=== PATIENT | female | born 1960 | race Caucasian/White ===

== ENCOUNTER → 2016-09-05 | Outpatient (CLI) | payer BC ==
[~2016-09-05] MED LIST: CALC500C70 PO; LEVO112T2 PO; METH4PAK PO; METO25TA56 PO; PRLSR20 PO; TRIA37.5 PO; VNTHFA/IN INH
[2016-09-05 13:21] LABS: ALT/SGPT 33 U/L (12-78); AST/SGOT 25 U/L (15-37); BLOOD UREA NITROGEN 14 mg/dl (7-18); BUN/CREATININE RATIO 16.7 (10-20); CARBON DIOXIDE 29 mmol/L (21-32); CHLORIDE 101 mmol/L (98-107); CREATININE 0.81 mg/dl (0.60-1.20); GLUCOSE 89 mg/dl (70-99); POTASSIUM 3.4 mmol/L (3.5-5.1); SODIUM 141 mmol/L (136-145)
[2016-09-05 13:31] LABS: ALB/GLOB RATIO 1.1 (0.9-2); ALKALINE PHOSPHATASE 112 U/L (45-117); THYROID STIMULATING HORMONE 0.038 uIu/ml (0.300-4.500)
== END | disposition home or self-care (01) ==
LOC: C.LABBC 11:01
PROVIDERS: ATTEND Family Medicine
DX: I10 Essential (primary) hypertension (principal); E03.9 Hypothyroidism, unspecified

== ENCOUNTER → 2016-09-16 | Outpatient (CLI) | payer BC | END | disposition home or self-care (01) | LOC: C.PAPS 09:41 | PROVIDERS: ATTEND Obstetrics & Gynecology | DX: Z01.419 Encounter for gynecological examination (general) (routine) without abnormal findings (principal) ==

== ENCOUNTER → 2016-09-16 | Outpatient (CLI) | payer BC ==
--- NOTE | 2016-09-16 16:55 | MAMMOGRAPHY REPORT ---
BILATERAL DIGITAL SCREENING MAMMOGRAM TOMOSYNTHESIS WITH CAD: 09/16/2016 CLINICAL HISTORY: Routine screening. Patient has no complaints. TECHNIQUE: Bilateral breast tomosynthesis in addition to standard 2D mammography was performed. Curr ent study was also evaluated with a Computer Aided Detection (CAD) system. COMPARISON: No prior exams were available for comparison. BREAST COMPOSITION: There are scattered areas of fibroglandular density in both breasts. FINDINGS: There is a 4 mm nodular asymmetry within a slightly larger asymmetry in the middle one th ird of the left breast, best seen on the MLO view. Although this could represent normal overlapping fibroglandular tissue, additional spot compression tomosynthesis views and possibly ultrasound are recommended. There are a few round and punctate benign-appearing microcalcifications in the breasts. No other sonya picious mass, architectural distortion or cluster of microcalcifications is seen. IMPRESSION: ACR BI-RADS CATEGORY 0: INCOMPLETE EVALUATION: NEED ADDITIONAL IMAGING EVALUATION The asymmetry in the middle one third of the left breast needs additional evaluation. The patient will be called to schedule an appointment. Approximately 10% of breast cancers are not detected with mammography. A negative mammographic repor t should not delay biopsy if a clinically suggestive mass is present. Mary Kate Rosado M.D. ay/:09/16/2016 16:15:03 Field Broomer: Alexis MERLOS)(Isela), [facility] letter sent: Addl Imaging 0 BI-RADS Code: ACR BI-RADS Category 0: Incomplete Evaluation: Need Additional Imaging Evaluation
== END | disposition home or self-care (01) ==
LOC: C.MAMM 11:17
PROVIDERS: ATTEND Obstetrics & Gynecology
DX: Z12.31 Encounter for screening mammogram for malignant neoplasm of breast (principal); N64.9 Disorder of breast, unspecified

== ENCOUNTER → 2016-09-28 | Outpatient (CLI) | payer BC ==
--- NOTE | 2016-09-28 14:37 | MAMMOGRAPHY REPORT ---
THIS REPORT HAS BEEN AMENDED. UNILATERAL LEFT DIGITAL DIAGNOSTIC MAMMOGRAM TOMOSYNTHESIS AND TARGETED LEFT ULTRASOUND: 09/28/2016 CLINICAL HISTORY: 56-year-old woman called back from screening mammography for an asymmetry in the m iddle one third of the left breast, best seen on the MLO view. The patient provided outside mammogr am and ultrasound reports, but the images were not available. Based on those reports, the patient h ad been called back from screening and 2010 for a left breast asymmetry. Additional imaging includi ng diagnostic mammograms and targeted ultrasound were performed, including an ultrasound described i n the retroareolar breast. TECHNIQUE: Spot compression CC and MLO tomosynthesis images and reconstructed C-view were obtained. COMPARISON: Comparison is made to exam dated: 09/16/2016 mammogram - [facility]. BREAST COMPOSITION: There are scattered areas of fibroglandular density in the left breast. FINDINGS: There is persistence of a 5 mm nodular asymmetry in the middle one third of the left breas t, along the posterior nipple line, 3 cm from the nipple. No definite persistent architectural dist ortion. No corresponding abnormality is clearly seen on the spot compression CC tomosynthesis image s. Further evaluation with ultrasound was performed. Targeted ultrasound was performed in the 8:00 through 10:00, 12:00 retroareolar, and 2:00 to 4:00 ax es of the left breast. There is mild duct ectasia with possible internal debris in the retroareolar and 2:00 periareolar/subareolar left breast. No suspicious spiculated or irregular mass is identif ied. IMPRESSION: ACR-BI-RADS CATEGORY 3: PROBABLY BENIGN, TARGETED ULTRASOUND ACR-BI-RADS CATEGORY 3: [place] OBABLY BENIGN There is mild duct ectasia with possible intraductal debris in the subareolar left breast, which may be contributing to the nodularity seen mammographically on the MLO view. Additional attempts will be made to obtain the patient's prior imaging from 2010 and 2011. If the mammographic and sonograph ic appearance is stable then may be able to return to screen otherwise would recommend a short inter taya follow-up left mammogram and targeted ultrasound to ensure stability in 6 months. These results and recommendations were discussed with the patient at the time of the exam. Approximately 10% of breast cancers are not detected with mammography. A negative mammographic repor t should not delay biopsy if a clinically suggestive mass is present. Mary Kate Rosado M.D. ay/:09/28/2016 10:26:27 Slide Forming Machine Tender: Alexis MERLOS)(Isela), [facility] letter sent: Follow Up Recommended 3 BI-RADS Code: ACR-BI-RADS Category 3: Probably Benign Ultrasound BI-RADS: ACR-BI-RADS Category 3: P robably Benign AMENDMENT: 10/08/2016 Mary Kate Rosado M.D. The prior outside mammograms from [facility] dated 04/17/2010, 04/20/2011, 05/04/2012, 10/10/19 14, 10/19/2014 became available for review. The asymmetry in the middle one third of the left breas t, along the posterior nipple line on the MLO view which measures approximately 3 cm, with a more no dular 5 mm asymmetry within appears similar on all available prior mammograms from the outside insti tution, particularly the 2011 mammogram. They most likely represent the suspected duct ectasia seen on recent diagnostic ultrasound. Therefore, these findings are considered benign and would recomme nd follow-up at time of next annual screening mammogram. Amended BI-RADS: ACR BI-RADS Category 2: Benign letter sent: Normal 08/31
== END | disposition home or self-care (01) ==
LOC: C.MAMM 08:43
PROVIDERS: ATTEND Obstetrics & Gynecology
DX: N64.9 Disorder of breast, unspecified (principal)

== ENCOUNTER → 2016-11-03 | Outpatient (CLI) | payer BC ==
[2016-11-03 18:15] LABS: BLOOD UREA NITROGEN 20 mg/dl (7-18); BUN/CREATININE RATIO 24.8 (10-20); CALCIUM 9.1 mg/dl (8.5-10.1); CARBON DIOXIDE 32 mmol/L (21-32); CHLORIDE 101 mmol/L (98-107); CREATININE 0.81 mg/dl (0.60-1.20); GLUCOSE 85 mg/dl (70-99); SODIUM 141 mmol/L (136-145)
== END | disposition home or self-care (01) ==
LOC: C.LAB1850 17:15
PROVIDERS: ATTEND Family Medicine
DX: Z11.59 Encounter for screening for other viral diseases (principal); E03.9 Hypothyroidism, unspecified; E87.6 Hypokalemia

== ENCOUNTER 2017-03-28 08:37 | Emergency (ER) | payer BC ==
[~2017-03-28] VITALS: Ht 165.1 cm; Wt 67.2 kg
[2017-03-28 08:41] VITALS: TEMP 36.5; Ht 165.1 cm; Wt 67.2 kg
[2017-03-28] MEDS ORDERED: SODIUM CHLORIDE 0.9% 1000ML 1,000 ML IV STA ×2 (08:57→10:37)
[2017-03-28] MEDS ORDERED: ALBUT/IPRATROP 3MG/0.5MG NEB 3 ML VIAL INH STA (09:05)
--- NOTE | 2017-03-28 09:05 | EMERGENCY ROOM VISIT NOTE ---
History First contact with patient: 08:46 Chief Complaint: WEAKNESS Stated Complaint: WEAKNESS, FATIGUE, DIZZY X 1 WK Nursing Triage Summary: Feeling weak and dizzy. Seen at [facility] on Wednesday for same. Orientation questions correct in triage. Hx of Labyrinthitis History of Present Illness The patient is a 56 year old female who presents to the Emergency Room with complaints of generalized weakness and dizziness. The patient states that 10 days ago she developed some dizziness. She states she rolled over in bed and felt dizzy. That lasted for a few days. She states that she had intermittent symptoms of weakness and dizziness Wednesday and was seen at [facility] and was advised to try Flonase. The patient states that 2 days ago she woke up and felt very weak and fatigued. She states that the thought of getting up to go to the bathroom is almost overwhelming because of the fatigue. She went to an amusement park but had to leave because she was so fatigued. The patient was seen again at [facility] and had blood work done but has not gotten the results back. She states that today she felt even worse she reports a generalized fatigue. She states that today she noticed some numbness in her right arm but believes this is related to her nerves.. She has a history of labyrinthitis but states this feels different. She states that she had a sinus infection years ago and felt similar. She denies any fevers. She denies any headache. She denies any sinus congestion. She denies any neck pain or neck stiffness. She denies any chest pain or trouble breathing. She denies any cough. She denies any abdominal pain, nausea or vomiting. She denies any extremity pain or swelling. The patient also has post thyroidectomy hypothyroidism and takes Synthroid. Review of Systems A 10 system review of systems was completed with positives and pertinent negatives listed in the HPI. Past Medical/Surgical History Medical Problems: (1) Acute labyrinthitis (2) Hypertension (3) Hypothyroid Social History Smoking Status: Never Smoker Marital Status: Housing Status: lives with family Current/Historical Medications Scheduled Albuterol Hfa (Ventolin Hfa), 2-4 PUFFS INH Q6H Calcium/Vitamin D (Os-Samuel 500 Plus D), 1 TAB PO DAILY Levothyroxine Sodium (Synthroid), 112 MCG PO DAILY Methylprednisolone (Medrol Dosepak), 1 PKT PO UD Metoprolol Tartrate (Lopressor) (Lopressor), 25 MG PO DAILY Omeprazole (Prilosec), 20 MG PO DAILY Triamterene/Hctz (Dyazide 37.5MG/25MG), 1 TAB PO DAILY Physical Exam Vital Signs Date Time Temp Pulse Resp B/P (MAP) Pulse Ox O2 Delivery O2 Flow Rate FiO2 03/28/17 11:39 74 16 131/87 99 Room Air 03/28/17 10:43 72 16 138/82 94 Room Air 03/28/17 09:22 80 03/28/17 09:03 83 132/84 94 132/90 81 125/98 03/28/17 08:41 36.5 98 16 129/86 96 Room Air Physical Exam VITALS: Vitals are noted on the nurse's note and reviewed by myself. Vital signs stable. The patient is afebrile. She is not tachycardic, tachypneic or hypoxic. GENERAL: This is a 56-year-old female, in no acute distress, nondiaphoretic, well-developed well-nourished. SKIN: The skin was without rashes, erythema, edema, or bruising. There is no tenting of the skin. Capillary reflex less than 2 seconds. HEAD: Normocephalic atraumatic. EARS: External auditory canals clear, tympanic membranes pearly ortiz without erythema or bulging but there is effusion bilaterally. EYES: Pupils equal round and reactive to light and accommodation. Conjunctivae without injection, sclerae without icterus. Extraocular movements intact. NOSE: Patent, turbinates without inflammation or discharge. MOUTH: Mucous membranes moist. Tonsils are not enlarged. Pharynx without erythema or exudate. Uvula midline. Airway patent. Tongue does not deviate. NECK: Supple without nuchal rigidity. No lymphadenopathy. No thyromegaly. Cervical spine is nontender. No JVD. HEART: Regular rate and rhythm without murmurs gallops or rubs. LUNGS: There are scattered wheezes and crackles noted on the left. No retractions or accessory muscle use. ABDOMEN: Positive bowel sounds x 4. Soft, nontender, without masses or organomegaly. MUSCULOSKELETAL: No muscle atrophy, erythema, or edema noted. Full range of motion without joint tenderness in all extremities. No tenderness to palpation. Normal gait. Strength 5/5 throughout. NEURO: Patient was alert and oriented to person place and time. Cranial nerves II through XII grossly intact. Finger to nose testing intact. Heel harley testing intact. Negative pronator drift. No focal neurological deficits. Medical Decision & Procedures ER Provider Diagnostic Interpretation: [~ rep ct add3]] CHEST ONE VIEW PORTABLE CLINICAL HISTORY: weakness, dizziness pain COMPARISON STUDY: No previous studies for comparison. FINDINGS: Thoracic scoliosis. No evidence for cardiac enlargement. Lungs are clear. IMPRESSION: No acute process. HEAD WITHOUT CONTRAST (CT) CT DOSE: 537.48 mGy.cm HISTORY: Mental status change weakness, dizziness TECHNIQUE: Multiaxial CT images of the head were performed without the use of intravenous contrast. A dose lowering technique was utilized adhering to the principles of ALARA. Comparison: None. Findings: The paranasal sinuses and mastoid air cells are clear. The calvarium and skull base are intact. The ventricles and sulci are within normal limits. There is no mass, hematoma, midline shift, or acute infarct. Impression: No acute intracranial abnormality. Laboratory Results 03/28/17 09:05 Red Blood Count 5.22, Mean Corpuscular Volume 86.6, Mean Corpuscular Hemoglobin 30.1, Mean Corpuscular Hemoglobin Concent 34.7, Mean Platelet Volume 8.9, Neutrophils (%) (Auto) 69.1, Lymphocytes (%) (Auto) 21.3, Monocytes (%) (Auto) 8.2, Eosinophils (%) (Auto) 0.7, Basophils (%) (Auto) 0.4, Neutrophils # (Auto) 5.22, Lymphocytes # (Auto) 1.61, Monocytes # (Auto) 0.62, Eosinophils # (Auto) 0.05, Basophils # (Auto) 0.03 03/28/17 09:05 Test 03/28/17 09:05 03/28/17 09:25 White Blood Count 7.55 K/uL (4.8-10.8) Red Blood Count 5.22 M/uL (4.2-5.4) Hemoglobin 15.7 g/dL (12.0-16.0) Hematocrit 45.2 % (37-47) Mean Corpuscular Volume 86.6 fL (80-100) Mean Corpuscular Hemoglobin 30.1 pg (25-34) Mean Corpuscular Hemoglobin Concent 34.7 g/dl (32-36) Platelet Count 342 K/uL (130-400) Mean Platelet Volume 8.9 fL (7.4-10.4) Neutrophils (%) (Auto) 69.1 % Lymphocytes (%) (Auto) 21.3 % Monocytes (%) (Auto) 8.2 % Eosinophils (%) (Auto) 0.7 % Basophils (%) (Auto) 0.4 % Neutrophils # (Auto) 5.22 K/uL (1.4-6.5) Lymphocytes # (Auto) 1.61 K/uL (1.2-3.4) Monocytes # (Auto) 0.62 K/uL (0.11-0.59) Eosinophils # (Auto) 0.05 K/uL (0-0.5) Basophils # (Auto) 0.03 K/uL (0-0.2) RDW Standard Deviation 40.8 fL (36.4-46.3) RDW Coefficient of Variation 12.6 % (11.5-14.5) Immature Granulocyte % (Auto) 0.3 % Immature Granulocyte # (Auto) 0.02 K/uL (0.00-0.02) Prothrombin Time 10.9 SECONDS (9.0-12.0) Prothromb Time International Ratio 1.0 (0.9-1.1) Activated Partial Thromboplast Time 29.5 SECONDS (21.0-31.0) Partial Thromboplastin Ratio 1.1 D-Dimer 470 ug/L FEU (0-500) Anion Gap 9.0 mmol/L (3-11) Est Creatinine Clear Calc Drug Dose 50.2 ml/min Estimated GFR () 64.1 Estimated GFR (Non- 55.3 BUN/Creatinine Ratio 15.7 (10-20) Calcium Level 9.8 mg/dl (8.5-10.1) Magnesium Level 2.0 mg/dl (1.8-2.4) Total Bilirubin 0.8 mg/dl (0.2-1) Aspartate Amino Transf (AST/SGOT) 21 U/L (15-37) Alanine Aminotransferase (ALT/SGPT) 27 U/L (12-78) Alkaline Phosphatase 107 U/L (45-117) Total Creatine Kinase 122 U/L (26-192) Troponin I < 0.015 ng/ml (0-0.045) Total Protein 8.2 gm/dl (6.4-8.2) Albumin 4.3 gm/dl (3.4-5.0) Globulin 3.9 gm/dl (2.5-4.0) Albumin/Globulin Ratio 1.1 (0.9-2) Thyroid Stimulating Hormone (TSH) 2.970 uIu/ml (0.300-4.500) Monoscreen NEG (NEG) Urine Color YELLOW Urine Appearance CLEAR (CLEAR) Urine pH >= 9.0 (4.5-7.5) Urine Specific [place] 1.010 (1.000-1.030) Urine Protein NEG (NEG) Urine Glucose (UA) NEG (NEG) Urine Ketones NEG (NEG) Urine Occult Blood TRACE (NEG) Urine Nitrite NEG (NEG) Urine Bilirubin NEG (NEG) Urine Urobilinogen NEG (NEG) Urine Leukocyte Esterase NEG (NEG) Urine WBC (Auto) 1-5 /hpf (0-5) Urine RBC (Auto) 0-4 /hpf (0-4) Urine Hyaline Casts (Auto) 1-5 /lpf (0-5) Urine Epithelial Cells (Auto) 5-10 /lpf (0-5) Urine Bacteria (Auto) NEG (NEG) Urine Renal Epithelial Cells /lpf (0-5) Medications Administered Medications (Trade) Dose Ordered Sig/Emiliano Route Start Time Stop Time Status Last Admin Dose Admin Sodium Chloride 1,000 ml @ 999 mls/hr Q1H1M STAT IV 03/28/17 08:57 03/28/17 09:57 DC 03/28/17 09:13 999 MLS/HR Albuterol/ Ipratropium (Duoneb) 3 ml NOW STAT INH 03/28/17 09:05 03/28/17 09:06 DC 03/28/17 09:15 3 ML Sodium Chloride 1,000 ml @ 999 mls/hr Q1H1M STAT IV 03/28/17 10:37 03/28/17 11:37 DC 03/28/17 10:41 999 MLS/HR Procedure The patient was monitored on a patient monitor. They maintained a normal sinus rhythm without ectopy. ECG Indication: weakness Rate (beats per minute): 78 Rhythm: normal sinus Findings: no acute ischemic change Comparison ECG Date: no prior available ED Course The patient was seen and examined. Previous visits were reviewed. The patient does not have a fever or leukocytosis. She does not have any significant electrolyte abnormality. Troponin is not elevated. CPK is not elevated. TSH is within normal limits. INR is 1.0. D-dimer is not elevated. Urinalysis suggests contamination. [place] spot was negative. Chest x-ray does not reveal any acute finding CAT scan of the brain does not reveal any acute finding The patient was hydrated with normal saline 2 L She was given a DuoNeb The patient was feeling better The patient had negative orthostatic vital signs The patient presents to the emergency department with nonspecific symptoms of generalized weakness, fatigue and lightheadedness. The above workup does not reveal any obvious abnormality. The etiology of the patient's symptoms is not clear. The patient did have a few scattered wheezes and crackles at the left base of the lungs. The wheezes cleared with a DuoNeb and the patient was feeling better. The crackles or possible rub is not noted on auscultation of the heart. The patient does have severe thoracic scoliosis. It is possible that due to her anatomy the lung sounds could be chronic. The patient has a pending Lyme titer from [facility] and should follow-up with that today or tomorrow. The patient will be given a Medrol dose pack due to the wheezing and will be given an inhaler. She should return to the ER with any chest pain, trouble breathing, abdominal pain, vomiting, headache, generalized worsening symptoms. The case was discussed with Dr. Gonzalez who agrees with the assessment and treatment plan Medical Decision DIFFERENTIAL DIAGNOSIS: Aortic dissection, myocarditis, pericarditis, cervical disc disease, costochondritis, herpes zoster, rib fracture, pleuritis, pneumonia , pulmonary embolus, tension pneumothorax, anxiety disorder, somatoform disorder , choledocholithiasis, status, esophagitis, esophageal spasm, esophageal reflux , esophageal rupture, pancreatitis, peptic ulcer disease, cardiac ischemia, ST elevation NV, acute coronary syndrome, arrhythmia, coronary artery vasospasm. vavular heart disease, coronary artery disease, among others. Medication Reconcilliation Current Medication List: was personally reviewed by me Blood Pressure Screening Patient's blood pressure: Normal blood pressure Blood pressure disposition: Did not require urgent referral Impression Primary Impression: Dizziness Additional Impression: Fatigue Departure Information Dispostion Home / Self-Care Condition GOOD Prescriptions Albuterol Hfa (VENTOLIN HFA) 200 Puffs/24465 Mcg Aers 2-4 PUFFS INH Q6H, #1 INHALER Prov: Suzy Armstrong PA-C 03/28/17 Methylprednisolone (MEDROL DOSEPAK) 4 Mg Guille 1 PKT PO UD, #1 PKT Prov: Suzy Armstrong PA-C 03/28/17 Referrals Micah Tatum M.D. (PCP) Patient Instructions ED Weakness [facility], Fatigue Manage, [facility] Additional Instructions Medrol Dosepak as prescribed Albuterol inhaler as needed Return with worsening symptoms, chest pain, trouble breathing, fevers Otherwise, recheck with your family doctor for further evaluation and management this week Follow up on the Lyme titer outpatient testing Problem Qualifiers Additional Impression:
[2017-03-28 09:18] LABS: BASO % 0.4 %; BASO ABS # 0.03 K/uL (0-0.2); COMPLETE YES; EOS % 0.7 %; HEMATOCRIT 45.2 % (37-47); IG% 0.3 %; LYMPH % 21.3 %; LYMPH ABS # 1.61 K/uL (1.2-3.4); MEAN CELL VOLUME 86.6 fL (80-100); MEAN CORPUSCULAR HEMOGLOBIN 30.1 pg (25-34); MEAN CORPUSCULAR HGB CONC 34.7 g/dl (32-36); MEAN PLATELET VOLUME 8.9 fL (7.4-10.4); MONO % 8.2 %; NEUT % 69.1 %; PLATELET COUNT 342 K/uL (130-400); RED BLOOD COUNT 5.22 M/uL (4.2-5.4); WHITE BLOOD COUNT 7.55 K/uL (4.8-10.8)
--- NOTE | 2017-03-28 09:23 | DIAGNOSTIC IMAGING REPORT ---
CHEST ONE VIEW PORTABLE CLINICAL HISTORY: weakness, dizziness pain COMPARISON STUDY: No previous studies for comparison. FINDINGS: Thoracic scoliosis. No evidence for cardiac enlargement. Lungs are clear. IMPRESSION: No acute process. The above report was generated using voice recognition software. It may contain grammatical, syntax or spelling errors. Electronically signed by: Matias Benavides M.D. 03/28/2017 9:22 AM Dictated Date/Time: 03/28/2017 9:21 AM
[2017-03-28 09:37] LABS: PARTIAL THROMBOPLASTIN RATIO 1.1; PROTHROMBIN TIME (PATIENT) 10.9 SECONDS (9.0-12.0)
[2017-03-28 09:38] LABS: ALT/SGPT 27 U/L (12-78); BLOOD UREA NITROGEN 17 mg/dl (7-18); BUN/CREATININE RATIO 15.7 (10-20); CALCIUM 9.8 mg/dl (8.5-10.1); CARBON DIOXIDE 29 mmol/L (21-32); CHLORIDE 101 mmol/L (98-107); GLUCOSE 113 mg/dl (70-99); POTASSIUM 3.8 mmol/L (3.5-5.1); SODIUM 139 mmol/L (136-145)
[2017-03-28 09:41] LABS: URINE APPEARANCE CLEAR (CLEAR); URINE BILIRUBIN NEG (NEG); URINE COLOR YELLOW; URINE NITRITE NEG (NEG); URINE PH >= 9.0 (4.5-7.5); UROBILINOGEN NEG (NEG); ZZUR CULT IF INDIC CLEAN CATCH NO
[2017-03-28 09:42] LABS: MANUAL MICROSCOPIC REQUIRED? NO; REVIEW REQ? YES
[2017-03-28 09:48] LABS: ALB/GLOB RATIO 1.1 (0.9-2); ALKALINE PHOSPHATASE 107 U/L (45-117); AST/SGOT 21 U/L (15-37)
--- NOTE | 2017-03-28 10:00 | DIAGNOSTIC IMAGING REPORT ---
HEAD WITHOUT CONTRAST (CT) CT DOSE: 537.48 mGy.cm HISTORY: Mental status change weakness, dizziness TECHNIQUE: Multiaxial CT images of the head were performed without the use of intravenous contrast. A dose lowering technique was utilized adhering to the principles of ALARA. Comparison: None. Findings: The paranasal sinuses and mastoid air cells are clear. The calvarium and skull base are intact. The ventricles and sulci are within normal limits. There is no mass, hematoma, midline shift, or acute infarct. Impression: No acute intracranial abnormality. The above report was generated using voice recognition software. It may contain grammatical, syntax or spelling errors. Electronically signed by: Matias Benavides M.D. 03/28/2017 9:59 AM Dictated Date/Time: 03/28/2017 9:58 AM
[2017-03-28] MEDS ORDERED: METH4PAK PO (11:31)
[2017-03-28] MEDS ORDERED: VNTHFA/IN INH (11:31)
[2017-03-28 11:39] VITALS: BP 131/87; PULSE 74; O2SAT 99
[2017-04-22] MEDS ORDERED: LEVO112T2 PO (09:16)
[2017-04-22] MEDS ORDERED: METO25TA56 PO (09:16)
[2017-04-22] MEDS ORDERED: TRIA37.5 PO (09:16)
[2017-04-22] MEDS ORDERED: CALC500C70 PO (09:16)
[2017-04-22] MEDS ORDERED: PRLSR20 PO (09:16)
== END 2017-03-28 12:00 | disposition home or self-care (01) ==
LOC: C.EDB 08:39 → C.EDA 12:00
DX: R53.83 Other fatigue (principal); R42 Dizziness and giddiness; I10 Essential (primary) hypertension; E03.9 Hypothyroidism, unspecified; Z79.899 Other long term (current) drug therapy

== ENCOUNTER 2017-03-29 06:25 | Emergency (ER) | payer BC ==
[~2017-03-29] VITALS: Ht 167.6 cm; Wt 68.5 kg
[~2017-03-29 06:25] MED LIST changes: -CALC500C70 PO; -LEVO112T2 PO; -METO25TA56 PO; -PRLSR20 PO; -TRIA37.5 PO
[2017-03-29 06:31] VITALS: Ht 167.6 cm; Wt 68.5 kg
[2017-03-29 07:32] VITALS: BP 134/88; PULSE 74; O2SAT 98
--- NOTE | 2017-03-29 07:44 | EMERGENCY ROOM VISIT NOTE ---
History Report prepared by Russ: Sharon Ruiz Under the Supervision of: Dr. Bry Gupta D.O. First contact with patient: 06:45 Chief Complaint: SHORTNESS OF BREATH Stated Complaint: SHORTNESS OF BREATH,SWEATING ELVIRA Nursing Triage Summary: Pt presents for evaluation of shortness of breath. Seen here yesterday for possible pneumonia. This morning while in shower pt felt dizzy and short of breath. Improved now. 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 The patient states that she was evaluated in the ED yesterday and all of her testing was unremarkable. She was prescribed a Medrol dose pack and has taken 2 doses since leaving the ED yesterday. The patient states that she felt well last night and this morning prior to getting a shower. The patient states that she took a shower this morning then made a cup of tea. As she was making the tea , she became dizzy and sweaty. She originally thought it was just a hot flash. However, she states that she was dripping sweat which is not consistent with her typical hot flashes. After she started sweating, she developed shortness of breath and states that her heart felt like it was "pounding." She also experienced tingling in her right arm. The patient's symptoms lasted for 15-20 minutes before starting to improve. The patient states that she feels well now. The patient adds that she was diagnosed with a mitral valve prolapse 15 or more years ago by an echocardiogram but she has never experienced any associated symptoms with that in the past. The patient states that she started to experience dizziness 1 week ago after rolling over in bed. She states that she has a history of labyrinthitis and originally thought that was the cause of her dizziness. However, she started to experience fatigue and generalized weakness 3 days ago so she went to [facility] and they performed blood work. Her blood work 3 days ago was also unremarkable. She states that she is still waiting on the Lyme test result. The patient states that her symptoms today were worse than her symptoms 3 days ago and yesterday. 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 A total of 10 systems reviewed and were otherwise negative. Past Medical & Surgical Medical Problems: (1) Acute labyrinthitis (2) Hypertension (3) Hypothyroid Family History No pertinent family history Social History Smoking Status: Never Smoker Marital Status: Housing Status: lives with family Current/Historical Medications Scheduled Albuterol Hfa (Ventolin Hfa), 2-4 PUFFS INH Q6H Calcium/Vitamin D (Os-Samuel 500 Plus D), 1 TAB PO DAILY Levothyroxine Sodium (Synthroid), 112 MCG PO DAILY Methylprednisolone (Medrol Dosepak), 1 PKT PO UD Metoprolol Tartrate (Lopressor) (Lopressor), 25 MG PO DAILY Omeprazole (Prilosec), 20 MG PO DAILY Triamterene/Hctz (Dyazide 37.5MG/25MG), 1 TAB PO DAILY Allergies Coded Allergies: No Known Allergies (Unverified , 03/28/17) Physical Exam Vital Signs Date Time Temp Pulse Resp B/P (MAP) Pulse Ox O2 Delivery O2 Flow Rate FiO2 03/29/17 07:32 74 20 134/88 98 03/29/17 06:33 98 Room Air 03/29/17 06:31 87 18 138/106 99 Room Air Physical Exam CONSTITUTIONAL/VITAL SIGNS: Reviewed / noted above. GENERAL: Non-toxic in appearance. INTEGUMENTARY: Warm, dry, and [place]. HEAD: Normocephalic. EYES: without scleral icterus or trauma. ENT/OROPHARYNX: clear and moist. LYMPHADENOPATHY/NECK: Is supple without lymphadenopathy or meningismus. RESPIRATORY: Lungs clear and equal. CARDIOVASCULAR: Regular rate and rhythm. GI/ABDOMEN: Soft and nontender. No organomegaly or pulsatile mass. No rebound or guarding. Normal bowel sounds. EXTREMITIES: Warm and well perfused. BACK: No CVA tenderness. NEUROLOGICAL: Intact without focal deficits. PSYCHIATRIC: normal affect. MUSCULOSKELETAL: Normally developed with good muscle tone. Medical Decision & Procedures ECG Indication: SOB/dyspnea Rate (beats per minute): 72 Rhythm: normal sinus Findings: no acute ischemic change, no ectopy ED Course 0703: Previous medical records were reviewed. The patient was evaluated in room A11. A complete history and physical examination was performed. 0745: On reevaluation, the patient is doing well. I discussed the results and findings with the patient. She verbalized agreement of the treatment plan. She was discharged home. Medical Decision Differentials considered include acute myocardial infarction, acute coronary syndrome, myocarditis, pericarditis, pericardial effusions /tamponade, esophageal perforation, thoracic aortic dissection, pulmonary embolism, pneumonia, pneumothorax, pancreatitis, shingles, acute cholecystitis, and perforated abdominal viscus. . This is a 56-year-old female who presents to the ED with a chief complaint of feeling sweaty, short of breath, heart pounding and tingling in her right hand. The patient states that her symptoms occurred this morning after taking a shower. She states that she felt the symptoms for about 15 minutes, until she arrived here and then things started to improve. The patient states that she was here yesterday for similar symptoms although not as bad. She has been experiencing some weakness and tiredness. The patient had blood work yesterday that was reviewed. Her blood work included a CBC, chemistry panel, thyroid function, chest x-ray, CAT scan of the brain and EKG. The patient also reports having had blood work at [facility] on Wednesday for the same symptoms that she had experienced today. She states that her blood work at that time was normal. A Lyme test is pending. The patient's exam today is normal. She reported that her heart was pounding but did not feel like it was irregular or very rapid. The patient's symptoms might be related to the prednisone she was started on yesterday. This could be related to palpitations/arrhythmia or possibly anxiety. The patient, after evaluation was felt to be stable for discharge. Her vital signs here are normal. Blood pressure was slightly elevated but this is likely situational. I did not feel additional blood work will be beneficial at this point since she had blood work taken yesterday and Wednesday and these were normal. A twelve-lead EKG done today reveals a sinus rhythm at a rate of 72. The patient was felt to be stable for discharge. I did recommend follow-up with her PCP and possibly Holter monitor, as per her PCP. Medication Reconcilliation Current Medication List: was personally reviewed by me Blood Pressure Screening Patient's blood pressure: Elevated blood pressure Blood pressure disposition: Elevated BP felt to be situational Impression Primary Impression: Dyspnea Scribe Attestation The scribe's documentation has been prepared under my direction and personally reviewed by me in its entirety. I confirm that the note above accurately reflects all work, treatment, procedures, and medical decision making performed by me. Departure Information Dispostion Home / Self-Care Referrals Micah Tatum M.D. (PCP) Forms HOME CARE DOCUMENTATION FORM, IMPORTANT VISIT INFORMATION Patient Instructions My [facility] Additional Instructions Follow-up with your doctor. Holter monitor/event monitor may be beneficial. Talk to your doctor about this. Stop the steroid that was prescribed yesterday. This may be associated with some of the symptoms he experienced today. Return for severe worsening or new concerns. Problem Qualifiers Primary Impression: Dyspnea Dyspnea type: shortness of breath Qualified Codes: R06.02 - Shortness of breath
[2017-04-22] MEDS ORDERED: PRLSR20 PO (09:16)
[2017-04-22] MEDS ORDERED: TRIA37.5 PO (09:16)
[2017-04-22] MEDS ORDERED: METO25TA56 PO (09:16)
[2017-04-22] MEDS ORDERED: LEVO112T2 PO (09:16)
[2017-04-22] MEDS ORDERED: CALC500C70 PO (09:16)
== END 2017-03-29 07:57 | disposition home or self-care (01) ==
LOC: C.EDB 06:27 → C.EDA 07:57
DX: R06.00 Dyspnea, unspecified (principal); R61 Generalized hyperhidrosis; I10 Essential (primary) hypertension; E03.9 Hypothyroidism, unspecified; Z79.899 Other long term (current) drug therapy

== ENCOUNTER 2017-04-22 18:49 | Emergency (ER) | payer OTHER, BC ==
[~2017-04-22] VITALS: Ht 167.6 cm; Wt 70.0 kg
[~2017-04-22 18:49] MED LIST changes: +CALC500C70 PO; +LEVO112T2 PO; -METH4PAK PO; +METO25TA56 PO; +PRLSR20 PO; +TRIA37.5 PO
[2017-04-22 18:55] VITALS: TEMP 36.6; Ht 167.6 cm; Wt 70.0 kg
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
[2017-04-22 20:44] VITALS: BP 155/96; PULSE 105; O2SAT 97
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
== END 2017-04-22 20:44 | disposition home or self-care (01) ==
LOC: EDBD 18:49 → C.EDD 18:50
DX: M25.561 Pain in right knee (principal); M79.641 Pain in right hand; M54.5 Low back pain; V43.52XA Car driver injured in collision with other type car in traffic accident, initial encounter; Y92.410 Unspecified street and highway as the place of occurrence of the external cause; I10 Essential (primary) hypertension; E03.9 Hypothyroidism, unspecified; Z79.899 Other long term (current) drug therapy

== ENCOUNTER → 2017-11-11 | Outpatient (CLI) | payer OTHER ==
[~2017-11-11] MED LIST changes: -VNTHFA/IN INH
--- NOTE | 2017-11-11 15:15 | MAMMOGRAPHY REPORT ---
BILATERAL DIGITAL SCREENING MAMMOGRAM TOMOSYNTHESIS WITH CAD: 11/11/2017 CLINICAL HISTORY: Routine screening. Patient has no complaints. TECHNIQUE: Breast tomosynthesis in addition to standard 2D mammography was performed. Current study was also evaluated with a Computer Aided Detection (CAD) system. BREAST COMPOSITION: There are scattered areas of fibroglandular density in both breasts. FINDINGS: No suspicious masses, calcifications, or areas of architectural distortion are noted in ei ther breast. There has been no significant interval change compared to prior exams. IMPRESSION: ACR BI-RADS CATEGORY 1: NEGATIVE There is no mammographic evidence of malignancy. A 1 year screening mammogram is recommended. The pa tient will receive written notification of the results. Approximately 10% of breast cancers are not detected with mammography. A negative mammographic report should not delay biopsy if a clinically suggestive mass is present. Balbina Francis M.D. ah/:11/11/2017 12:19:31 Electronic Prepress Operator: Justina SANTANA(Kelsie)(Isela), [facility] letter sent: Normal 1/2 BI-RADS Code: ACR BI-RADS Category 1: Negative
== END | disposition home or self-care (01) ==
LOC: C.MAMM 09:46
PROVIDERS: ATTEND Obstetrics & Gynecology
DX: Z12.31 Encounter for screening mammogram for malignant neoplasm of breast (principal)

== ENCOUNTER → 2017-11-11 | Outpatient (CLI) | payer OTHER ==
[2017-11-11 11:16] LABS: ALT/SGPT 35 U/L (12-78); AST/SGOT 22 U/L (15-37); BLOOD UREA NITROGEN 14 mg/dl (7-18); CALCIUM 9.3 mg/dl (8.5-10.1); CARBON DIOXIDE 31 mmol/L (21-32); CREATININE 0.77 mg/dl (0.60-1.20); GLUCOSE 101 mg/dl (70-99); POTASSIUM 3.4 mmol/L (3.5-5.1); SODIUM 136 mmol/L (136-145)
[2017-11-11 11:27] LABS: ALKALINE PHOSPHATASE 124 U/L (45-117); CHOLESTEROL 177 mg/dl (0-200); LDL CHOLESTEROL CALCULATED 92 mg/dl
== END | disposition home or self-care (01) ==
LOC: C.LABBC 08:40
PROVIDERS: ATTEND Nurse Practitioner Adult Health
DX: Z00.00 Encounter for general adult medical examination without abnormal findings (principal); I10 Essential (primary) hypertension; E03.9 Hypothyroidism, unspecified; M85.80 Other specified disorders of bone density and structure, unspecified site

== ENCOUNTER → 2017-11-11 | Outpatient (CLI) | payer OTHER | END | disposition home or self-care (01) | LOC: C.MAMM 09:45 | PROVIDERS: ATTEND Physician Assistant | DX: M85.89 Other specified disorders of bone density and structure, multiple sites (principal) ==

== ENCOUNTER → 2017-12-16 | Outpatient (CLI) | payer OTHER ==
[2017-12-16 17:44] LABS: ALBUMIN 4.4 gm/dl (3.4-5.0); TOTAL PROTEIN 8.3 gm/dl (6.4-8.2)
[2017-12-17 06:25] LABS: HEMOGLOBIN A1C 5.5 % (4.5-5.6)
== END | disposition home or self-care (01) ==
LOC: C.LABBC 12:43
PROVIDERS: ATTEND Nurse Practitioner Adult Health
DX: R73.01 Impaired fasting glucose (principal); R74.8 Abnormal levels of other serum enzymes

== ENCOUNTER 2019-10-05 19:17 | Inpatient (IN) ==
[2019-10-05] MEDS ORDERED: ONDANSETRON INJ 2 MG/ML 2 ML VIAL IV STA (19:26)
[2019-10-05] MEDS ORDERED: SODIUM CHLORIDE 0.9% 1000ML 1,000 ML IV ONE (19:26)
[2019-10-05] MEDS ORDERED: KETOROLAC TROMETHAMINE 15 MG/ML VIAL IV STA (19:32)
[2019-10-05 19:57] LABS: Basophils # (auto) 0.02 K/uL (0-0.2); Basophils % (auto) 0.2 %; Eosinophils # (auto) 0.08 K/uL (0-0.5); Eosinophils % (auto) 0.9 %; Hematocrit (blood only) 41.1 % (37-47); Hemoglobin 14.3 g/dL (12.0-16.0); Immature Granulocytes # (auto) 0.01 K/uL (0.00-0.02); Immature Granulocytes % (auto) 0.1 %; Lymphocytes # (auto) 1.86 K/uL (1.2-3.4); Lymphocytes % (auto) 21.8 %; Mean Corpuscular Hemoglobin 29.7 pg (25-34); Mean Corpuscular Hgb Conc 34.8 g/dL (32-36); Mean Corpuscular Volume 85.4 fL (80-100); Mean Platelet Volume 9.5 fL (7.4-10.4); Monocytes % (auto) 9.4 %; Neutrophils # (auto) 5.76 K/uL (1.4-6.5); Neutrophils % (auto) 67.6 %; Platelet Count 269 K/uL (130-400); RDW Coefficient of Variation 12.8 % (11.5-14.5); RDW Standard Deviation 40.3 fL (36.4-46.3); Red Blood Count 4.81 M/uL (4.2-5.4); White Blood Count 8.53 K/uL (4.8-10.8)
[2019-10-05 20:25] LABS: Albumin Level 3.7 gm/dl (3.4-5.0); BUN Creatinine Ratio 17.9 (10-20); Bilirubin Direct 0.3 mg/dl (0-0.2); Calcium 9.4 mg/dl (8.5-10.1); Creatinine Clr Calc Pharmacy 71.8 ml/min; Est GFR (African American) 92.2; Est GFR (Non-African American) 79.6; Potassium 2.9 mmol/L (3.5-5.1)
[2019-10-05 20:27] LABS: Bilirubin,Total 0.6 mg/dl (0.2-1); Total Protein 7.6 gm/dl (6.4-8.2)
--- NOTE | 2019-10-05 20:44 | Ultrasound Report ---
US gallbladder CLINICAL HISTORY: 59 years-old Female presenting with ruq pain ro michael. TECHNIQUE: Real-time grayscale and limited color Doppler ultrasound imaging of the abdomen limited to the right upper quadrant was performed. COMPARISON: None. FINDINGS: Pancreas: Visualized portions of the pancreatic head and body normal. Liver: Normal echogenicity and echotexture. The liver measures 13.9 cm in maximal sagittal dimension. No sonographic evidence of hepatic mass. Main portal vein patent with normal directional flow. Biliary: No intrahepatic biliary ductal dilatation. Common bile duct measures up to 10 mm in diameter . Gallbladder: Gallbladder wall thickening measuring 5 mm. No evidence of gallstones, gallbladder diste ntion, or pericholecystic fluid or inflammatory change. Unable to assess sonographic Santana's sign. Right kidney: Normal in appearance without evidence of hydronephrosis. Ascites: None. Other: None. IMPRESSION: 1. No cholelithiasis, however, gallbladder wall thickening. No other evidence suggest cholecystitis. This is indeterminate. HIDA scan may be helpful. 2. Dilated common bile duct. Choledocholithiasis cannot be excluded though the absence of cholelithi asis decreases the likelihood. Consider MRCP for better evaluation. ACT 112: Negative or not required by law. Electronically signed by: Dionisio Vo M.D. 10/05/2019 8:43 PM
--- NOTE | 2019-10-05 20:47 | XRay Report ---
XR abdomen 2V w PA chest CLINICAL HISTORY: 59 years-old Female presenting with epigastric pain. TECHNIQUE: PA view of the chest and supine and upright views of the abdomen were obtained. COMPARISON: 03/28/2017. FINDINGS: Cardiac silhouette enlarged though the mediastinal silhouette is altered by the presence of severe de xtroscoliosis. Heterogeneity of lung parenchyma with mild hyperinflation. No focal lung opacity. No p leural effusion or pneumothorax. Surgical clips project over the base of the neck. Nonobstructive bowel gas pattern. No gross pneumoperitoneum. A hiatal hernia may be present. Allowing for bowel gas and stool, no calcifications to suggest nephrolithiasis. Osteopenia. Significant S-shaped scoliotic curvature with dextroscoliosis of the thoracic spine as me ntioned and levoscoliosis of the lumbar spine. IMPRESSION: 1. No acute cardiopulmonary disease. 2. No radiographic evidence of acute intra-abdominal pathology. 3. Suspected hiatal hernia. 4. Severe shaped scoliosis. ACT 112: Negative or not required by law. Electronically signed by: Dionisio Vo M.D. 10/05/2019 8:46 PM
[2019-10-05] MEDS ORDERED: POTASSIUM CHLORIDE 10 MEQ TABCR PO STA (21:22)
--- NOTE | 2019-10-05 21:22 | Emergency Department Note ---
Entered by Negar Craig acting as a scribe for Deacon Gibson History of Present Illness General Chief complaint: Abdominal Pain Stated complaint: MID STERNUM CHEST PAIN IN BACK Time Seen by Provider: 10/05/19 19:24 Source: patient History of Present Illness Onset (ago): hour(s) (1600 today) Location: abdomen (upper) Radiation: other (shoulder blades) Maximum Pain Intensity: 5 Quality: + other (upper abdominal pain) Associated symptoms: + other (Negative alcohol use, bloody or black stools, difficulty passing gas or urinating); no chest pain The patient is a 59 year old female who presents to the ED with complaints of upper abdominal pain. She has a hx of GERD and takes prilosec. She states after she ate a salad around 1600 today, she began feeling nauseous. Shortly afterwards, she developed upper abdominal pain with radiation to her shoulder blades. Pt denies any alcohol use, bloody or black stools, difficulty passing gas or urinating, chest pain, SOB. Home Medications Home Medications Medication Instructions Recorded Confirmed Type metoprolol succinate 25 mg 25 mg PO DAILY #90 tab 05/05/19 08/22/19 Rx tablet,extended release 24 hr calcium carb 300 mg-D3 800 1 tab PO DAILY 08/13/19 08/22/19 History unit-mag ox 25 mg-copyman 0.5 mg-george-Zn tablet multivitamin 1 tab PO DAILY 08/13/19 08/22/19 History amlodipine 2.5 mg tablet mg PO .TAKE 1 TABLET DAILY. 08/15/19 08/22/19 History brimonidine 0.2 %-timolol 0.5 % drp OP 08/15/19 08/22/19 History eye drops dorzolamide 2 % eye drops 1 drops OP BID ml 08/15/19 08/22/19 History netarsudil 0.02 %-latanoprost 1 drops OP QPM 08/15/19 08/22/19 History 0.005 % eye drops scopolamine base 1 mg over 3 days 1 patch TD Q72H PRN #4 ea 08/15/19 08/22/19 Rx transdermal patch levothyroxine 112 mcg tablet 112 mcg PO DAILY #90 tab 09/11/19 Rx triamterene 37.5 1 cap PO DAILY #90 cap 09/11/19 Rx mg-hydrochlorothiazide 25 mg capsule omeprazole 20 mg capsule,delayed 20 mg PO DAILY #90 cap 10/03/19 Rx release Allergies Allergy/AdvReac Type Severity Reaction Status Date / Time No Known Allergies Allergy Unverified 08/22/19 09:02 Past Med/Surg History Medical History Acid reflux disease (Chronic) Hypertension (Chronic) Hypothyroidism (Chronic) Impaired fasting glucose (Chronic) Osteopenia (Chronic) Vertigo (Chronic) Surgical History H/O total thyroidectomy for multiple thyroid nodules History of salpingo-oophorectomy Family History Father Diabetes Emphysema lung Other Breast cancer Hypertension Myocardial infarction Social History Preferred Language: Gambian marital status: Current Living Situation: Spouse current occupational status: employed Feels Safe at Home: Yes Smoking Status: Never smoker Hx Alcohol Use: No Hx Substance Use: No Dental Care, Regularly: Yes Physical Activity Frequency: Does not Exercise Review of Systems See HPI for pertinent positives & negatives. and A total of 10 systems reviewed and were otherwise negative Physical Exam Vital Signs Vital Signs - 24 hr 10/05/19 19:19 10/05/19 19:55 Temperature 36.6 C Temperature Source Oral Pulse Rate 92 H Pulse Rate [Apical] 78 Respiratory Rate 18 18 Respiratory Effort / Characteristics Non-Labored Spontaneous Respiratory Depth Normal Respiratory Pattern Regular Blood Pressure 158/90 H Blood Pressure [Left Arm] 138/83 Blood Pressure Mean 112 Blood Pressure Mean [Left Arm] 101 Blood Pressure Position Sitting Pulse Oximetry 98 Oxygen Delivery Method Room Air Sepsis Recent Fever Within 48 Hours No Sepsis Action Taken by Nursing No Action Required GENERAL: She is oriented to person, place, and time. She appears well-developed and well-nourished. She does not appear distressed. HENT: Exam performed. Head: Normocephalic and atraumatic. Right Ear: External ear normal. No mastoid tenderness. Left Ear: External ear normal. No mastoid tenderness. Mouth/Throat: The oropharynx is clear and moist. No trismus in the jaw. No dental abscesses or uvula swelling. No oropharyngeal exudate or tonsillar abscesses. EYES: Conjunctivae and EOM are normal. Pupils are equal, round, and reactive to light. Right eye exhibits no discharge. Left eye exhibits no discharge. No scleral icterus. NECK: Normal range of motion. Neck supple. No JVD present. No spinous process tenderness present. No carotid bruit present. No rigidity. No tracheal deviation and normal range of motion present. No Brudzinski's sign and no Kernig's sign noted. CV: Normal rate, regular rhythm, normal heart sounds and intact distal pulses. There is no peripheral edema. Palpable radial pulses bue. PULM/CHEST: Effort normal and breath sounds normal. No respiratory distress. No stridor. She has no wheezes. She has no rales. Chest Wall: She exhibits no tenderness. ABD: The abdomen is soft. Bowel sounds are normal. She has no distension. No mass is present. There is no rebound, no guarding, no Santana's sign and no tenderness at McBurney's point. Rovsig negative. Pain on palpation of epigastric and RUQ. MUSC/SKEL: Normal range of motion. There is no peripheral edema, tenderness or deformity. LYMPH: No cervical adenopathy. NEURO: She is alert and oriented to person, place, and time. She has normal strength. No cranial nerve deficit or sensory deficit. Coordination and gait normal. GCS eye subscore is 4. GCS verbal subscore is 5. GCS motor subscore is 6. cerbellar tests wnl. SKIN: Skin is warm and dry. She is not diaphoretic. PSYCH: She has a normal mood and affect. Her behavior is normal. Judgment and thought content normal. Course Course 192: Past medical records reviewed. The patient was evaluated in room B5. A complete history and physical exam was performed. 2100: Vital signs stable. Labs show a potassium of 2.9. Potassium was replaced in the emergency department. Labs also show elevated liver enzymes. Ultrasound showed no cholelithiasis however the common bile duct is dilated. Patient will be admitted for HIDA scan/MRCP. Discussed the patient's case with Dr. Denny, [facility] Hospitalist. The patient will be evaluated for further management. Administered Medications Discontinued Medications Sodium Chloride (Nss 1000ml) 1,000 mls @ 999 mls/hr IV .Q1H1M ONE Stop: 10/05/19 20:26 Last Infusion: 10/05/19 21:15 Dose: 0 mls/hr Documented by: [id number] Admin: 10/05/19 19:52 Dose: 999 mls/hr Documented by: [id number] Ketorolac Tromethamine (Toradol) 15 mg IV NOW STA Stop: 10/05/19 19:33 Last Admin: 10/05/19 19:52 Dose: 15 mg Documented by: [id number] Ondansetron HCl (Zofran) 4 mg IV NOW STA Stop: 10/05/19 19:27 Last Admin: 10/05/19 19:52 Dose: 4 mg Documented by: [id number] Medical Decision Making Medical Records Attestation: I reviewed the patient's medical records. Home Medications Current Medication List: was personally reviewed by me Laboratory Data Attestation: I reviewed the patient's lab results. Result diagrams: 10/05/19 19:45 10/05/19 19:45 Lab Results 10/05/19 10/05/19 Range/Units 19:45 19:45 WBC 8.53 (4.8-10.8) K/uL RBC 4.81 (4.2-5.4) M/uL Hgb 14.3 (12.0-16.0) g/dL Hct 41.1 (37-47) % MCV 85.4 (80-100) fL MCH 29.7 (25-34) pg MCHC 34.8 (32-36) g/dL RDW Std Deviation 40.3 (36.4-46.3) fL RDW Coeff of Kp 12.8 (11.5-14.5) % Plt Count 269 (130-400) K/uL MPV 9.5 (7.4-10.4) fL Immature Gran % (Auto) 0.1 % Neut % (Auto) 67.6 % Lymph % (Auto) 21.8 % Mckean % (Auto) 9.4 % Eos % (Auto) 0.9 % Baso % (Auto) 0.2 % Immature Gran # (Auto) 0.01 (0.00-0.02) K/uL Neut # (Auto) 5.76 (1.4-6.5) K/uL Lymph # (Auto) 1.86 (1.2-3.4) K/uL Mckean # (Auto) 0.80 H (0.11-0.59) K/uL Eos # (Auto) 0.08 (0-0.5) K/uL Baso # (Auto) 0.02 (0-0.2) K/uL Sodium 136 (136-145) mmol/L Potassium 2.9 L (3.5-5.1) mmol/L Chloride 101 (98-107) mmol/L Carbon Dioxide 31 (21-32) mmol/L Anion Gap 4.0 (3-11) BUN 14 (7-18) mg/dl Creatinine 0.80 (0.6-1.2) mg/dl Est Cr Clr Drug Dosing 71.8 ml/min Est GFR ( Amer) 92.2 Est GFR (Non-Af Amer) 79.6 BUN/Creatinine Ratio 17.9 (10-20) Glucose 128 H (70-99) mg/dl Calcium 9.4 (8.5-10.1) mg/dl Total Bilirubin 0.6 (0.2-1) mg/dl Direct Bilirubin 0.3 H (0-0.2) mg/dl AST 222 H (15-37) U/L ALT 124 H (12-78) U/L Alkaline Phosphatase 141 H (45-117) U/L Total Protein 7.6 (6.4-8.2) gm/dl Albumin 3.7 (3.4-5.0) gm/dl Lipase 296 (73-393) U/L Imaging Data Radiologist's Impression: Radiology results as stated below per my review and the radiologist's interpretation: US gallbladder CLINICAL HISTORY: 59 years-old Female presenting with ruq pain ro michael. TECHNIQUE: Real-time grayscale and limited color Doppler ultrasound imaging of the abdomen limited to the right upper quadrant was performed. COMPARISON: None. FINDINGS: Pancreas: Visualized portions of the pancreatic head and body normal. Liver: Normal echogenicity and echotexture. The liver measures 13.9 cm in maximal sagittal dimension. No sonographic evidence of hepatic mass. Main portal vein patent with normal directional flow. Biliary: No intrahepatic biliary ductal dilatation. Common bile duct measures up to 10 mm in diameter. Gallbladder: Gallbladder wall thickening measuring 5 mm. No evidence of gallstones, gallbladder distention, or pericholecystic fluid or inflammatory change. Unable to assess sonographic Santana's sign. Right kidney: Normal in appearance without evidence of hydronephrosis. Ascites: None. Other: None. IMPRESSION: 1. No cholelithiasis, however, gallbladder wall thickening. No other evidence suggest cholecystitis. This is indeterminate. HIDA scan may be helpful. 2. Dilated common bile duct. Choledocholithiasis cannot be excluded though the absence of cholelithiasis decreases the likelihood. Consider MRCP for better evaluation. ACT 112: Negative or not required by law. Electronically signed by: Dionisio Vo M.D. 10/05/2019 8:43 PM XR abdomen 2V w PA chest CLINICAL HISTORY: 59 years-old Female presenting with epigastric pain. TECHNIQUE: PA view of the chest and supine and upright views of the abdomen were obtained. COMPARISON: 03/28/2017. FINDINGS: Cardiac silhouette enlarged though the mediastinal silhouette is altered by the presence of severe dextroscoliosis. Heterogeneity of lung parenchyma with mild hyperinflation. No focal lung opacity. No pleural effusion or pneumothorax. Surgical clips project over the base of the neck. Nonobstructive bowel gas pattern. No gross pneumoperitoneum. A hiatal hernia may be present. Allowing for bowel gas and stool, no calcifications to suggest nephrolithiasis. Osteopenia. Significant S-shaped scoliotic curvature with dextroscoliosis of the thoracic spine as mentioned and levoscoliosis of the lumbar spine. IMPRESSION: 1. No acute cardiopulmonary disease. 2. No radiographic evidence of acute intra-abdominal pathology. 3. Suspected hiatal hernia. 4. Severe shaped scoliosis. ACT 112: Negative or not required by law. Electronically signed by: Dionisio Vo M.D. 10/05/2019 8:46 PM ECG Data Attestation: I personally reviewed and interpreted this ECG as follows: Indication: + abdominal pain Rate (beats per minute): 81 Rhythm: + sinus rhythm ECG Intervals/blocks: + First degree AV block, + Normal QRS and + Normal QT-c ECG Findings: + Other (HI interval is 212) Blood Pressure Blood Pressure Findings: Elevated blood pressure Blood Pressure Disposition: further management by hospitalist [facility] Narrative Vital signs stable. Labs show a potassium of 2.9. Potassium was replaced in the emergency department. Labs also show elevated liver enzymes. Ultrasound showed no cholelithiasis however the common bile duct is dilated. Patient will be admitted for HIDA scan/MRCP. Discussed the patient's case with Dr. Denny, [facility] Hospitalist. The patient will be evaluated for further management. Impression & Plan Choledocholithiasis Discharge Plan Visit Data Chief Complaint: Abdominal Pain Stated Complaint: MID STERNUM CHEST PAIN IN BACK ED Provider: Deacon Gibson Discharge Problem: Choledocholithiasis Patient Disposition: Being Evaluated by Hospitalist Forms Stand Alone Forms: Call Back Authorization, [facility] Prescriptions Prescriptions: No Action metoprolol succinate 25 mg tablet extended release 24 hr 25 mg PO DAILY Qty: 90 RF: 3 levothyroxine [Synthroid] 112 mcg tablet 112 mcg PO DAILY Qty: 90 RF: 3 triamterene-hydrochlorothiazid [Dyazide] 37.5-25 mg capsule 1 cap PO DAILY Qty: 90 RF: 3 omeprazole 20 mg capsule,delayed release(DR/EC) 20 mg PO DAILY Qty: 90 RF: 3 Caltrate + D3 Plus Minerals 300 mg-800 unit -25 mg-0.5 mg tablet 1 tab PO DAILY RF: 0 multivitamin tablet 1 tab PO DAILY RF: 0 Combigan 0.2-0.5 % drops OP RF: 0 amlodipine 2.5 mg tablet PO .TAKE 1 TABLET DAILY. RF: 0 dorzolamide 2 % drops 1 drops OP BID RF: 0 Rocklatan 0.02-0.005 % drops 1 drops OP QPM RF: 0 scopolamine base 1 mg over 3 days patch 3 day 1 patch TD Q72H PRN (Reason: motion sickness) Qty: 4 RF: 3 Referrals Referrals: Nataliya Drake MD [Primary Care Provider] - The scribe's documentation has been prepared under my direction and personally reviewed by me in its entirety. I confirm that the note above accurately reflects all work, treatment, procedures, and medical decision making performed by me.
[2019-10-05] MEDS ORDERED: ONDANSETRON INJ 2 MG/ML 2 ML VIAL IV PRN (22:45)
[2019-10-05] MEDS: NSS + 20MEQ KCL 20 MEQ/1,000 ML BAG IV SCH (23:45)
[2019-10-05] MEDS: cefTRIAXone SODIUM 1,000 MG in DEXTROSE 5% 50 ML IV SCH (23:45)
[2019-10-05] MEDS: FAMOTIDINE 20 MG in SYRINGE 3 ML IV SCH (23:45)
[2019-10-06] MEDS: POTASSIUM CHLORIDE / WTR 10 MEQ/100 ML PLCT IV SCH (00:52)
--- NOTE | 2019-10-06 03:53 | History & Physical Report ---
Date of Service October 06, 2019 The patient was seen and examined on October 05, 2019. Assessment & Plan (1) Abnormal gallbladder ultrasound: Abnormal gallbladder ultrasound/common bile duct dilatation/gallbladder wall thickening/transaminitis- NPO NSS + KCl 20 mEq at 100 mils per hour. Zofran 4 mg IV every 6 hours as needed Famotidine 20 mg IV every 12 hours Ceftriaxone 1 g IV daily Order MRCP. We will consult gastroenterology and general surgery once results have returned Present on Admission?: Yes (2) Common bile duct dilatation: See above Present on Admission?: Yes (3) Transaminitis: See above Present on Admission?: Yes (4) Hypertension: Hold metoprolol succinate, triamterene/HCTZ and amlodipine while n.p.o. Present on Admission?: Yes (5) Hypothyroidism: Continue levothyroxine 112 mcg daily Present on Admission?: Yes (6) Acid reflux disease: Change omeprazole 20 mg p.o. daily to famotidine 20 mg IV every 12 hours Present on Admission?: Yes (7) Hypokalemia: Patient was given potassium chloride 40 mEq orally, so MRCP will need to wait till morning. Placed on NSS + KCl 20 mEq at 100 mils per hour. Repeat laboratories in a.m. Present on Admission?: Yes History of Present Illness Chief Complaint: The patient presents to the emergency department with acute onset of epigastric and midsternal pain with radiation around to the back with nausea and bloating. Primary Care Provider: Nataliya Drake MD The patient is a 59-year-old female with a past medical history including hypertension, vertigo, osteopenia, hypothyroidism, GERD and impaired fasting glucose. She presents the emergency department with acute onset of epigastric and midsternal chest discomfort, accompanied by nausea and abdominal bloating. Allergies Allergy/AdvReac Type Severity Reaction Status Date / Time No Known Allergies Allergy Unverified 10/05/19 22:13 Home Medications Home Medications Medication Instructions Recorded Confirmed Type metoprolol succinate 25 mg 25 mg PO DAILY #90 tab 05/05/19 08/22/19 Rx tablet,extended release 24 hr calcium carb 300 mg-D3 800 1 tab PO DAILY 08/13/19 08/22/19 History unit-mag ox 25 mg-endoscopy tech 0.5 mg-george-Zn tablet multivitamin 1 tab PO DAILY 08/13/19 08/22/19 History amlodipine 2.5 mg tablet mg PO .TAKE 1 TABLET DAILY. 08/15/19 08/22/19 History brimonidine 0.2 %-timolol 0.5 % drp OP 08/15/19 08/22/19 History eye drops dorzolamide 2 % eye drops 1 drops OP BID ml 08/15/19 08/22/19 History netarsudil 0.02 %-latanoprost 1 drops OP QPM 08/15/19 08/22/19 History 0.005 % eye drops scopolamine base 1 mg over 3 days 1 patch TD Q72H PRN #4 ea 08/15/19 08/22/19 Rx transdermal patch levothyroxine 112 mcg tablet 112 mcg PO DAILY #90 tab 09/11/19 Rx triamterene 37.5 1 cap PO DAILY #90 cap 09/11/19 Rx mg-hydrochlorothiazide 25 mg capsule omeprazole 20 mg capsule,delayed 20 mg PO DAILY #90 cap 10/03/19 Rx release Past Med/Surg History Medical History Acid reflux disease (Chronic) Hypertension (Chronic) Hypothyroidism (Chronic) Impaired fasting glucose (Chronic) Osteopenia (Chronic) Vertigo (Chronic) Surgical History H/O total thyroidectomy for multiple thyroid nodules History of salpingo-oophorectomy Family History Father Diabetes Emphysema lung Other Breast cancer Hypertension Myocardial infarction Social History Preferred Language: Armenian Communication Ability: Effective Beliefs That Will Affect Care: None marital status: Current Living Situation: Spouse and Family current occupational status: employed Other Information That Helps Us Care for You: No Feels Safe at Home: Yes Safety Concerns: Feels Safe At This Time Smoking Status: Never smoker Hx Alcohol Use: Yes Alcohol type: wine Hx Substance Use: No Dental Care, Regularly: Yes Physical Activity Frequency: Does not Exercise Review of Systems Review of Systems: The patient denies chest pain, palpitations, shortness of breath, dyspnea on exertion, cough, lower extremity swelling, sore throat, fevers, chills, sweats, vomiting, diarrhea , constipation, pelvic pain, blood in urine or stool, dysuria, urinary frequency or urgency, lightheadedness, dizziness, headache, memory loss, loss of consciousness, rash, abnormal bruising or bleeding, imbalance, focal or generalized weakness, numbness or tingling in arms or legs, generalized arthralgias or myalgias, back or neck pain, or night sweats. The review of systems is otherwise negative other than for that already noted above, and at least 10 systems have been reviewed. Physical Exam Physical Exam: The patient is awake, alert and oriented 3, well developed and well nourished, normocephalic and atraumatic, lying in bed and in no acute distress. HEENT--PERRL, EOMI, mucous membranes and oropharynx dry. Neck--supple. No JVD. No bruits. Thyroid normal, trachea midline, no adenopathy. Heart--normal S1 and S2. No murmurs, rubs or gallops. Lungs--clear bilaterally, no respiratory distress, no accessory muscle use. Abdomen--normal bowel sounds and soft. Mild epigastric tenderness. Mildly tympanitic Extremities--no cyanosis or clubbing. No edema. Dermatologic--normal skin turgor, normal color, no abnormal lymph nodes, no rash. Neurologic--cranial nerves II through XII grossly intact. Rheumatologic--normal range of motion. Psychiatric--normal affect. Results & Data Vital Signs (Past 12 Hours) Vital Signs Temp Pulse Pulse Pulse Resp BP BP 10/05/19 23:22 97.5 F L 91 H 16 135/83 10/05/19 22:51 98.2 F 93 H 18 142/87 H 10/05/19 22:46 98.2 F 93 H 18 142/87 H 10/05/19 22:13 90 18 127/78 10/05/19 19:55 78 18 138/83 10/05/19 19:19 97.9 F 92 H 18 158/90 H Pulse Ox 10/05/19 23:22 98 10/05/19 22:51 97 10/05/19 22:46 97 10/05/19 22:13 98 10/05/19 19:55 10/05/19 19:19 98 Laboratory Results Laboratory Results WBC 8.53 K/uL (4.8-10.8) 10/05/19 19:45 RBC 4.81 M/uL (4.2-5.4) 10/05/19 19:45 Hgb 14.3 g/dL (12.0-16.0) 10/05/19 19:45 Hct 41.1 % (37-47) 10/05/19 19:45 MCV 85.4 fL (80-100) 10/05/19 19:45 MCH 29.7 pg (25-34) 10/05/19 19:45 MCHC 34.8 g/dL (32-36) 10/05/19 19:45 RDW Std Deviation 40.3 fL (36.4-46.3) 10/05/19 19:45 RDW Coeff of Kp 12.8 % (11.5-14.5) 10/05/19 19:45 Plt Count 269 K/uL (130-400) 10/05/19 19:45 MPV 9.5 fL (7.4-10.4) 10/05/19 19:45 Immature Gran % (Auto) 0.1 % 10/05/19 19:45 Neut % (Auto) 67.6 % 10/05/19 19:45 Lymph % (Auto) 21.8 % 10/05/19 19:45 Norton % (Auto) 9.4 % 10/05/19 19:45 Eos % (Auto) 0.9 % 10/05/19 19:45 Baso % (Auto) 0.2 % 10/05/19 19:45 Immature Gran # (Auto) 0.01 K/uL (0.00-0.02) 10/05/19 19:45 Neut # (Auto) 5.76 K/uL (1.4-6.5) 10/05/19 19:45 Lymph # (Auto) 1.86 K/uL (1.2-3.4) 10/05/19 19:45 Norton # (Auto) 0.80 K/uL (0.11-0.59) H 10/05/19 19:45 Eos # (Auto) 0.08 K/uL (0-0.5) 10/05/19 19:45 Baso # (Auto) 0.02 K/uL (0-0.2) 10/05/19 19:45 Sodium 136 mmol/L (136-145) 10/05/19 19:45 Potassium 2.9 mmol/L (3.5-5.1) L 10/05/19 19:45 Chloride 101 mmol/L (98-107) 10/05/19 19:45 Carbon Dioxide 31 mmol/L (21-32) 10/05/19 19:45 Anion Gap 4.0 (3-11) 10/05/19 19:45 BUN 14 mg/dl (7-18) 10/05/19 19:45 Creatinine 0.80 mg/dl (0.6-1.2) 10/05/19 19:45 Est Cr Clr Drug Dosing 71.8 ml/min 10/05/19 19:45 Est GFR ( Amer) 92.2 10/05/19 19:45 Est GFR (Non-Af Amer) 79.6 10/05/19 19:45 BUN/Creatinine Ratio 17.9 (10-20) 10/05/19 19:45 Glucose 128 mg/dl (70-99) H 10/05/19 19:45 Calcium 9.4 mg/dl (8.5-10.1) 10/05/19 19:45 Total Bilirubin 0.6 mg/dl (0.2-1) 10/05/19 19:45 Direct Bilirubin 0.3 mg/dl (0-0.2) H 10/05/19 19:45 AST 222 U/L (15-37) H 10/05/19 19:45 ALT 124 U/L (12-78) H 10/05/19 19:45 Alkaline Phosphatase 141 U/L (45-117) H 10/05/19 19:45 Total Protein 7.6 gm/dl (6.4-8.2) 10/05/19 19:45 Albumin 3.7 gm/dl (3.4-5.0) 10/05/19 19:45 Lipase 296 U/L (73-393) 10/05/19 19:45 None Diagnostic Findings [facility], [place] [phone] XRay Report Patient: ROOPA CHO Date: 10/05/19 MR#: [id number]: [address] Acct ID:[id number]: Date: 1960[facility] Zip: [place] [address] Age: 59Location: ED Sex: F Room/Bed: Att Phy:Diagnosis: MID STERNUM CHEST PAIN IN BACK Shilpi Phy: Nataliya Drake, MDService Date: 10/05/19 [facility] Phy:Interpreting Phy: Dionisio Vo MD Admit Phy: Ordering Phy: Deacon Gibson MD cc: ~ XR abdomen 2V w PA chest CLINICAL HISTORY: 59 years-old Female presenting with epigastric pain. TECHNIQUE: PA view of the chest and supine and upright views of the abdomen were obtained. COMPARISON: 03/28/2017. FINDINGS: Cardiac silhouette enlarged though the mediastinal silhouette is altered by the presence of severe dextroscoliosis. Heterogeneity of lung parenchyma with mild hyperinflation. No focal lung opacity. No pleural effusion or pneumothorax. Surgical clips project over the base of the neck. Nonobstructive bowel gas pattern. No gross pneumoperitoneum. A hiatal hernia may be present. Allowing for bowel gas and stool, no calcifications to suggest nephrolithiasis. Osteopenia. Significant S-shaped scoliotic curvature with dextroscoliosis of the thoracic spine as mentioned and levoscoliosis of the lumbar spine. IMPRESSION: 1. No acute cardiopulmonary disease. 2. No radiographic evidence of acute intra-abdominal pathology. 3. Suspected hiatal hernia. 4. Severe shaped scoliosis. ACT 112: Negative or not required by law. Electronically signed by: Dionisio Vo M.D. 10/05/2019 8:46 PM Dictated: 10/05/192043 Transcribed: 10/05/192043 [place], [place] [phone] Ultrasound Report Patient: ROOPA CHO Date: 10/05/19 MR#: [id number]: [address] Acct ID:[id number]: Date: 1960 Zip: [place] [address] Age: 59Location: ED Sex: F Room/Bed: Att Phy:Diagnosis: MID STERNUM CHEST PAIN IN BACK Shilpi Phy: Natailya Drake, MDService Date: 10/05/19 [facility] Phy:Interpreting Phy: Dionisio Vo MD Admit Phy: Ordering Phy: Deacon Gibson MD cc: ~ US gallbladder CLINICAL HISTORY: 59 years-old Female presenting with ruq pain ro michael. TECHNIQUE: Real-time grayscale and limited color Doppler ultrasound imaging of the abdomen limited to the right upper quadrant was performed. COMPARISON: None. FINDINGS: Pancreas: Visualized portions of the pancreatic head and body normal. Liver: Normal echogenicity and echotexture. The liver measures 13.9 cm in maximal sagittal dimension. No sonographic evidence of hepatic mass. Main portal vein patent with normal directional flow. Biliary: No intrahepatic biliary ductal dilatation. Common bile duct measures up to 10 mm in diameter. Gallbladder: Gallbladder wall thickening measuring 5 mm. No evidence of gallstones, gallbladder distention, or pericholecystic fluid or inflammatory change. Unable to assess sonographic Santana's sign. Right kidney: Normal in appearance without evidence of hydronephrosis. Ascites: None. Other: None. IMPRESSION: 1. No cholelithiasis, however, gallbladder wall thickening. No other evidence suggest cholecystitis. This is indeterminate. HIDA scan may be helpful. 2. Dilated common bile duct. Choledocholithiasis cannot be excluded though the absence of cholelithiasis decreases the likelihood. Consider MRCP for better evaluation. ACT 112: Negative or not required by law. Electronically signed by: Dionisio Vo M.D. 10/05/2019 8:43 PM Dictated: 10/05/192039 Transcribed: 10/05/192039 9 Code Status & VTE Plan Code Status Full code VTE Prophylaxis Plan VTE Prophylaxis will be ordered: Yes PG Care Time/CCT Total # of Minutes Spent Total Time Spent with Patient: Total time spent is greater than 50% in coordination of care (as documented) at patient's floor/unit and/or counseling patient: Coding Level of Care Code 03741 OBS Care - Level 3 Diagnoses Abnormal gallbladder ultrasound R93.2 Common bile duct dilatation K83.8 Transaminitis R74.0 Hypertension I10 Hypothyroidism E03.9 Acid reflux disease K21.9 Hypokalemia E87.6
--- NOTE | 2019-10-06 08:16 | Magnetic Resonance Report ---
MR MRCP HISTORY: 59 years-old Female abnormal LFT's, dilated CBD, distended Gallbladder acutely elevated LFT s with substernal chest pain, nausea and gallbladder distention COMPARISON: Gallbladder ultrasound 10/05/2019 TECHNIQUE: MRCP without the use of IV contrast was obtained according to institutional protocol FINDINGS: Glazing Department Supervisor localizer images demonstrate no gross abnormality of the imaged lower chest or visualized pelvi s. Study is motion degraded. Lung bases appear clear. Moderate hiatal hernia. Unremarkable kidneys. N o aortic aneurysm or adenopathy. Spleen, pancreas and visualized adrenal glands are unremarkable. Unr emarkable liver. Mild gallbladder distention. No significant gallbladder wall thickening or perichole cystic edema identified. Tiny cholelithiasis noted within the gallbladder neck. The bile duct measure s the upper limits of normal at 6 mm. No intrahepatic biliary ductal dilation. No biliary strictures, mass lesions or intraluminal filling defects identified to suggest choledocholithiasis. No pancreati c ductal dilation or pancreatic divisum identified. Dextroscoliosis of the thoracolumbar spine. IMPRESSION: 1. Motion degraded exam. 2. Mild gallbladder distention with cholelithiasis. No definite evidence of acute cholecystitis. 3. No significant biliary ductal dilation or choledocholithiasis identified. 4. Moderate hiatal hernia. ACT 112: Negative or not required by law. The above report was generated using voice recognition software. It may contain grammatical, syntax o r spelling errors. Electronically signed by: Steve Ag M.D. 10/06/2019 8:15 AM
[2019-10-06 09:34] LABS: Albumin Level 3.7 gm/dl (3.4-5.0); BUN Creatinine Ratio 16.1 (10-20); Creatinine Clr Calc Pharmacy 70.9 ml/min; Est GFR (African American) 90.9; Est GFR (Non-African American) 78.4; Potassium 3.3 mmol/L (3.5-5.1)
[2019-10-06 09:43] LABS: Bilirubin,Total 3.7 mg/dl (0.2-1); Globulin 3.7 gm/dl (2.5-4.0); Total Protein 7.4 gm/dl (6.4-8.2)
--- NOTE | 2019-10-06 10:37 | Surgery Consultation ---
Date of Consultation October 06, 2019 Assessment & Plan (1) Cholelithiasis: This is a 59y F who presents to the [facility] yesterday with persistent abdominal pain and nausea. Workup with RUQ US shows some concern for a dilated common bile duct and MRCP revealed cholelithiasis, gallbladder distention, without definitive biliary ductal dilation or CBD stones. Today's labs indicate an increase in her liver enzymes; tbili 3.7(0.6), AST: 482 (222), ALT: 484 (124), AlkP: 183 (141). Today she currently is feeling better and on abdominal exam is non tender to palpation in the RUQ. At this time recommend obtaining a GI consult for further evaluation to see if they recommend an ERCP due to acute increase in LFTs. We will continue to follow along for surgical planning. as above. suspect pt passed CBD stone. LFT's elevated today despite MRCP - for choledocholithiasis. MRCP + for gallstones. recommend lap michael this admission. can do after ERCP if planned. will await GI rec's. discussed options/risks ( bleeding/infection/dvt/pe/mi/injury to an organ such as bile ducts/bowel etc... bile leaks etc... answered. questions. agreeable consent signed. History of Present Illness Attending Physician: Home Fajardo MD History of Present Illness This is a 59y F with PMH of HTN, GERD, thyroidectomy, and salpingo-oophorectomy, who presents to the [facility] ED on 10/05/19 with complaints of abdominal pain. Patient reports her pain started yesterday evening around 4pm. She states it started in the upper abdominal region and felt like the pain shot right through her back through her shoulder blades. She had some nausea and fullness associated with the pain. Her pain remained constant, and sharp, rating it an 8/10, which prompted her to come to the ED. In the ED patient underwent a RUQ US that showed no evidence of cholelithiasis, + gallbladder wall thickening, + dilated CBD, and was essentially an indeterminant study for cholecystitis. Medicine admitted the patient and obtained an MRCP which showed mild GB distention with cholelithiasis, no significant biliary ductal dilation or CBD stones, and no definitive e/o acute cholecystitis. Labs from 2/6 showed WBC 8.5, lipase: 296, Tbili: 0.6, AST: 222, ALT: 124. Patient reports the last thing she ate was a salad with ham, cheese, and korean dressing. She reports one other episode of similar symptoms last summer that was more mild and did not last long. She believes her reflux has been worse of recent, but says this pain does not feel like her typical reflux symptoms. Surgery was consulted for further evaluation. Allergies Allergy/AdvReac Type Severity Reaction Status Date / Time No Known Allergies Allergy Unverified 10/05/19 22:13 Home Medications Home Medications Medication Instructions Recorded Confirmed Type metoprolol succinate 25 mg 25 mg PO DAILY #90 tab 05/05/19 10/05/19 Rx tablet,extended release 24 hr calcium carb 300 mg-D3 800 1 tab PO DAILY 08/13/19 10/05/19 History unit-mag ox 25 mg-electron microscopist 0.5 mg-george-Zn tablet multivitamin 1 tab PO DAILY 08/13/19 10/05/19 History amlodipine 2.5 mg tablet 2.5 mg PO DAILY 08/15/19 10/05/19 History brimonidine 0.2 %-timolol 0.5 % 1 drp OPB BID 08/15/19 10/05/19 History eye drops dorzolamide 2 % eye drops 1 drops OP BID ml 08/15/19 10/05/19 History netarsudil 0.02 %-latanoprost 1 drops OPB QPM 08/15/19 10/05/19 History 0.005 % eye drops scopolamine base 1 mg over 3 days 1 patch TD Q72H PRN #4 ea 08/15/19 10/05/19 Rx transdermal patch levothyroxine 112 mcg tablet 112 mcg PO DAILY #90 tab 09/11/19 10/05/19 Rx triamterene 37.5 1 cap PO DAILY #90 cap 09/11/19 10/05/19 Rx mg-hydrochlorothiazide 25 mg capsule omeprazole 20 mg capsule,delayed 20 mg PO DAILY #90 cap 10/03/19 10/05/19 Rx release Patient History Medical History Acid reflux disease (Chronic) Hypertension (Chronic) Hypothyroidism (Chronic) Impaired fasting glucose (Chronic) Osteopenia (Chronic) Vertigo (Chronic) Surgical History H/O total thyroidectomy for multiple thyroid nodules History of salpingo-oophorectomy Family History Father Diabetes Emphysema lung Other Breast cancer Hypertension Myocardial infarction Social History Preferred Language: Turkish Communication Ability: Effective Beliefs That Will Affect Care: None marital status: Current Living Situation: Spouse and Family current occupational status: employed Other Information That Helps Us Care for You: No Feels Safe at Home: Yes Safety Concerns: Feels Safe At This Time Smoking Status: Never smoker Hx Alcohol Use: Yes Alcohol type: wine Hx Substance Use: No Dental Care, Regularly: Yes Physical Activity Frequency: Does not Exercise Review of Systems Constitutional: no fever and no chills Respiratory: no shortness of breath Cardiovascular: no chest pain Gastrointestinal: + abdominal pain (epigastric, radiating to back) and + nausea; no vomiting and no change in bowel habits Physical Exam Physical Exam: awake/alert Constitutional: well developed, well nourished, cooperative and comfortable; no acute distress Respiratory: normal respiratory effort Gastrointestinal (Abdomen): Inspection/Auscultation: + abdominal surgical scar (from prior salpingo-oophorectomy) Percussion/Palpation: abdomen soft; abdomen nontender mild bloating Results & Data Vital Signs (Past 12 Hours) Vital Signs Temp Pulse Resp BP Pulse Ox 10/06/19 07:35 36.7 C 107 H 21 125/78 91 10/05/19 23:22 36.4 C L 91 H 16 135/83 98 10/05/19 22:51 36.8 C 93 H 18 142/87 H 97 10/05/19 22:46 36.8 C 93 H 18 142/87 H 97 XR abdomen 2V w PA chest CLINICAL HISTORY: 59 years-old Female presenting with epigastric pain. TECHNIQUE: PA view of the chest and supine and upright views of the abdomen were obtained. COMPARISON: 03/28/2017. FINDINGS: Cardiac silhouette enlarged though the mediastinal silhouette is altered by the presence of severe dextroscoliosis. Heterogeneity of lung parenchyma with mild hyperinflation. No focal lung opacity. No pleural effusion or pneumothorax. Surgical clips project over the base of the neck. Nonobstructive bowel gas pattern. No gross pneumoperitoneum. A hiatal hernia may be present. Allowing for bowel gas and stool, no calcifications to suggest nephrolithiasis. Osteopenia. Significant S-shaped scoliotic curvature with dextroscoliosis of the thoracic spine as mentioned and levoscoliosis of the lumbar spine. IMPRESSION: 1. No acute cardiopulmonary disease. 2. No radiographic evidence of acute intra-abdominal pathology. 3. Suspected hiatal hernia. 4. Severe shaped scoliosis. ACT 112: Negative or not required by law. Electronically signed by: Dionisio Vo M.D. 10/05/2019 8:46 PM US gallbladder CLINICAL HISTORY: 59 years-old Female presenting with ruq pain ro michael. TECHNIQUE: Real-time grayscale and limited color Doppler ultrasound imaging of the abdomen limited to the right upper quadrant was performed. COMPARISON: None. FINDINGS: Pancreas: Visualized portions of the pancreatic head and body normal. Liver: Normal echogenicity and echotexture. The liver measures 13.9 cm in maximal sagittal dimension. No sonographic evidence of hepatic mass. Main portal vein patent with normal directional flow. Biliary: No intrahepatic biliary ductal dilatation. Common bile duct measures up to 10 mm in diameter. Gallbladder: Gallbladder wall thickening measuring 5 mm. No evidence of gallstones, gallbladder distention, or pericholecystic fluid or inflammatory change. Unable to assess sonographic Santana's sign. Right kidney: Normal in appearance without evidence of hydronephrosis. Ascites: None. Other: None. IMPRESSION: 1. No cholelithiasis, however, gallbladder wall thickening. No other evidence suggest cholecystitis. This is indeterminate. HIDA scan may be helpful. 2. Dilated common bile duct. Choledocholithiasis cannot be excluded though the absence of cholelithiasis decreases the likelihood. Consider MRCP for better evaluation. ACT 112: Negative or not required by law. Electronically signed by: Dionisio Vo M.D. 10/05/2019 8:43 PM MR MRCP HISTORY: 59 years-old Female abnormal LFT's, dilated CBD, distended Gallbladder acutely elevated LFTs with substernal chest pain, nausea and gallbladder distention COMPARISON: Gallbladder ultrasound 10/05/2019 TECHNIQUE: MRCP without the use of IV contrast was obtained according to institutional protocol FINDINGS: Parts Room Assistant localizer images demonstrate no gross abnormality of the imaged lower chest or visualized pelvis. Study is motion degraded. Lung bases appear clear. Moderate hiatal hernia. Unremarkable kidneys. No aortic aneurysm or adenopathy. Spleen, pancreas and visualized adrenal glands are unremarkable. Unremarkable liver. Mild gallbladder distention. No significant gallbladder wall thickening or pericholecystic edema identified. Tiny cholelithiasis noted within the gallbladder neck. The bile duct measures the upper limits of normal at 6 mm. No intrahepatic biliary ductal dilation. No biliary strictures, mass lesions or intraluminal filling defects identified to suggest choledocholithiasis. No pancreatic ductal dilation or pancreatic divisum identified. Dextroscoliosis of the thoracolumbar spine. IMPRESSION: 1. Motion degraded exam. 2. Mild gallbladder distention with cholelithiasis. No definite evidence of acute cholecystitis. 3. No significant biliary ductal dilation or choledocholithiasis identified. 4. Moderate hiatal hernia. ACT 112: Negative or not required by law. The above report was generated using voice recognition software. It may contain grammatical, syntax or spelling errors. Electronically signed by: Steve Ag M.D. 10/06/2019 8:15 AM PG Care Time/CCT Total # of Minutes Spent Total Time Spent with Patient: Total time spent is greater than 50% in coordination of care (as documented) at patient's floor/unit and/or counseling patient: Coding Level of Care Code 77892 Inpt Consult Level 3 Diagnoses Cholelithiasis K80.20
[2019-10-06] MEDS: NSS + 20MEQ KCL 20 MEQ/1,000 ML BAG IV SCH ×2 (11:12→21:03)
[2019-10-06] MEDS: FAMOTIDINE 20 MG in SYRINGE 3 ML IV SCH ×2 (11:14→22:15)
[2019-10-06] MEDS ORDERED: POTASSIUM CHLORIDE / WTR 10 MEQ/100 ML PLCT IV ONE (12:41)
--- NOTE | 2019-10-06 12:42 | Hospitalist Progress Note ---
Date of Service October 06, 2019 Assessment & Plan (1) Abnormal gallbladder ultrasound: Abnormal gallbladder ultrasound/common bile duct dilatation/gallbladder wall thickening/transaminitis- NPO NSS + KCl 20 mEq at 100 mils per hour. Zofran 4 mg IV every 6 hours as needed Famotidine 20 mg IV every 12 hours Ceftriaxone 1 g IV daily MRCP without ductal dilation which had initially been seen on US at time of admission. Consulted surgery, per their note: suspect pt passed CBD stone. Recommend lap michael this admission. can do after ERCP if planned. will await GI rec's. GI consulted, awaiting their input (2) Common bile duct dilatation: See above (3) Transaminitis: Continues to trend upward with increasing bilirubin as well though patient is feeling better overall. GI consulted (4) Hypertension: Hold metoprolol succinate, triamterene/HCTZ and amlodipine while n.p.o. (5) Hypothyroidism: Continue levothyroxine 112 mcg daily (6) Acid reflux disease: Changed omeprazole 20 mg p.o. daily to famotidine 20 mg IV every 12 hours while npo (7) Hypokalemia: Patient was given potassium chloride 40 mEq orally, so MRCP will need to wait till morning. Placed on NSS + KCl 20 mEq at 100 mils per hour. Potassium 3.3 - will give a K rider in addition to continuing IVF with potassium as above (8) DVT prophylaxis: SCDs, hold on chemoprophylaxis for possible surgical intervention Subjective Ms. Sky is feeling better today than yesterday. No nausea or vomiting, abdominal pain has subsided. ROS Constitutional: no chills, aches, sweats or fever Respiratory: no sob,cough, sputum, or wheezing Cardiac: no chest pain, palpitations, edema, orthopnea or lightheadedness GI: no abdominal pain, nausea, vomiting, diarrhea or constipation : no dysuria or hesitancy Extremities: no joint pain or weakness Skin: no rash All other systems reviewed and negative Physical Exam Physical Exam: General: no distress Eyes: normal inspection, PERLL Respiratory: chest non tender, clear to auscultation, normal breath sounds, no respiratory distress, no accessory muscle use Cardiac: regular rate and rhythm, no rub or gallop, no murmur, no edema, no jvd GI/: active bowel sounds, no abd pain or tenderness, soft, non distended Extremities: normal range of motion, normal strength, non tender Neuro/Psych: alert and oriented x 3, normal mood and affect Skin: normal color, dry Results & Data ([facility]) Vital Signs (Past 12 Hours) Vital Signs Temp Pulse Resp BP Pulse Ox 10/06/19 07:35 36.7 C 107 H 21 125/78 91 PG Care Time/CCT Total # of Minutes Spent Total Time Spent with Patient: Total time spent is greater than 50% in coordination of care (as documented) at patient's floor/unit and/or counseling patient: Coding Level of Care Code 46382 Subseq Hosp Care Lvl 3 Diagnoses Abnormal gallbladder ultrasound R93.2 Common bile duct dilatation K83.8 Transaminitis R74.0 Hypertension I10 Hypothyroidism E03.9 Acid reflux disease K21.9 Hypokalemia E87.6 DVT prophylaxis Z29.9
--- NOTE | 2019-10-06 14:10 | Electrocardiogram Report ---
Test Reason : Blood Pressure : / mmHG Vent. Rate : 081 BPM Atrial Rate : 081 BPM P-R Int : 212 ms QRS Dur : 086 ms QT Int : 376 ms P-R-T Axes : 054 009 037 degrees QTc Int : 436 ms Sinus rhythm with 1st degree A-V block Possible Left atrial enlargement Borderline ECG When compared with ECG of 29-MAR-2017 07:30, No significant change was found Confirmed by Rob Jones ([id number]) on 10/06/2019 2:09:48 PM Referred By: REFERRED SELF Confirmed By:Rob Jones
--- NOTE | 2019-10-06 15:28 | Gastrointestinal Consultation ---
Date of Consultation October 06, 2019 Assessment & Plan (1) Choledocholithiasis: Ms. Radha Sky has experienced RUQ pain, has elevated LFTs, gallstones (MRCP) and a dilated bile duct on imaging (US). This is highly suggestive of choledocholithiasis. Plan: 1. ERCP today by . 2. The procedure was explained in detail including indications, risks and complications. She agrees to go forward with the procedure. 3. Keep NPO. 4. Further recommendations to follow ERCP. 5. I have asked the charge nurse to contact the surgery service to inform the surgeon that we will be doing ERCP this afternoon. Present on Admission?: Yes Supervising Physician Co-Signing Physician Notes I performed a history and physical examination of the patient, including sp ecifically on physical exam - soft, nontender abdomen. I have discussed the patient's management with Marino. Please refer to the nurse practitioner's note for the documented findings and plan of care. 59 yrs old female patient with biliary pain, found with dilated CBD on US, LFTs went up today and bilirubin is 3.7 highly suggestive of choledocholithiasis. Initially planned for ERCP today however after discussing with surgical team, plan is to proceed with EUS/ERCP tomorrow morning followed by Randy rodriguez at the same time. Keep NPO. History of Present Illness Reason for Consultation: elevated LFTs Requesting Physician: Alannah Tatum NP Attending Physician: Home Fajardo MD History of Present Illness Ms Radha Sky is a 59 yr old female pt of Dr. Nataliya Drake. She has a hx of multinodular goiter S/P thyroidectomy, HTN, GERD, hiatal hernia. Pain began suddenly, initially as fullness and bloating yesterday afternoon. Pain was accompanied with nausea, soon escalated and radiated to the back. She presented to [facility] last evening for the pain. No fever, diarrhea, sweats, chills, no yellow eyes, yellow skin or acholic stools. On arrival US with gallbladder wall thickening and a dilated CBD to 10mm, MRCP showed gallstones, no nimesh dil. LFTs were elevated on arrival and further increased: T Bili 0.6->3.7, AST 222->482, ALT 124->484, Alk Phos 141->183. Lipase is normal. She is not on any anticoagulants/antiplatelets. She is awake. alert, oriented, and pain is improved. Nausea is resolved. She is hemodynamically stable w/o leukocytosis or fevers. She recalls one prior similar episode a year ago but pain did not persist and she did not seek medical attention at that time. Allergies Allergy/AdvReac Type Severity Reaction Status Date / Time No Known Allergies Allergy Unverified 10/05/19 22:13 Home Medications Home Medications Medication Instructions Recorded Confirmed Type metoprolol succinate 25 mg 25 mg PO DAILY #90 tab 05/05/19 10/05/19 Rx tablet,extended release 24 hr calcium carb 300 mg-D3 800 1 tab PO DAILY 08/13/19 10/05/19 History unit-mag ox 25 mg-gyroscopic engineering technician 0.5 mg-george-Zn tablet multivitamin 1 tab PO DAILY 08/13/19 10/05/19 History amlodipine 2.5 mg tablet 2.5 mg PO DAILY 08/15/19 10/05/19 History brimonidine 0.2 %-timolol 0.5 % 1 drp OPB BID 08/15/19 10/05/19 History eye drops dorzolamide 2 % eye drops 1 drops OP BID ml 08/15/19 10/05/19 History netarsudil 0.02 %-latanoprost 1 drops OPB QPM 08/15/19 10/05/19 History 0.005 % eye drops scopolamine base 1 mg over 3 days 1 patch TD Q72H PRN #4 ea 08/15/19 10/05/19 Rx transdermal patch levothyroxine 112 mcg tablet 112 mcg PO DAILY #90 tab 09/11/19 10/05/19 Rx triamterene 37.5 1 cap PO DAILY #90 cap 09/11/19 10/05/19 Rx mg-hydrochlorothiazide 25 mg capsule omeprazole 20 mg capsule,delayed 20 mg PO DAILY #90 cap 10/03/19 10/05/19 Rx release Patient History Medical History Acid reflux disease (Chronic) Hypertension (Chronic) Hypothyroidism (Chronic) Impaired fasting glucose (Chronic) Osteopenia (Chronic) Vertigo (Chronic) Surgical History H/O total thyroidectomy for multiple thyroid nodules History of salpingo-oophorectomy Family History Father Diabetes Emphysema lung Other Breast cancer Hypertension Myocardial infarction Social History Preferred Language: Tajik Communication Ability: Effective Beliefs That Will Affect Care: None marital status: Current Living Situation: Spouse and Family current occupational status: employed Other Information That Helps Us Care for You: No Feels Safe at Home: Yes Safety Concerns: Feels Safe At This Time Smoking Status: Never smoker Hx Alcohol Use: Yes Alcohol type: wine Hx Substance Use: No Dental Care, Regularly: Yes Physical Activity Frequency: Does not Exercise Review of Systems Review of Systems: ROS: Gen: Denies weakness, fevers, weight loss Eyes: No eye redness, or pain, no recent vision changes Resp: No SOB, no cough Cardio: No palpitations/irregular beats, no chest pain GI: See HPI : Denies pain on urination Skin: No jaundice, itching or new rashes Physical Exam Constitutional: WD/WN, vitals as above Eyes: PERRL, conjunctivae normal, anicteric sclerae ENMT: external ear and nose normal, oropharynx normal Neck: trachea midline, no thyromegaly Respiratory: normal respiratory effort, lungs clear to auscultation Cardiovascular: RRR, no murmur, no edema Gastrointestinal (Abdomen): Inspection/Auscultation: abdomen normal to inspection, + abdomen distended (mild distention) and + hypoactive bowel sounds Percussion/Palpation: + abdomen tender (very minmal RUQ tenderness on exam) and abdomen soft Musculoskeletal: no cyanosis or clubbing, extremities motor strength 5/5 Skin: no rashes, warm and dry Neurologic: PERRL, EOMI, accommodation nl, no face palsy, no dysarthria Psychiatric: A+Ox3, euthymic affect Lymphatic: no cervical or axillary lymphadenopathy Results & Data Vital Signs (Past 12 Hours) Vital Signs Temp Pulse Resp BP Pulse Ox 10/06/19 14:52 36.9 C 91 H 16 114/73 90 10/06/19 07:35 36.7 C 107 H 21 125/78 91 Laboratory Results WBC 8, Hb 14, Hct 41, Platelets 269 T bili 0.6->3.7, AST 222->482, ALT 124->484, Alk Phos 141 ->183. Diagnostic Findings US 10/05/19: 1. No cholelithiasis, however, gallbladder wall thickening. No other evidence suggest cholecystitis. This is indeterminate. HIDA scan may be helpful. 2. Dilated common bile duct. Choledocholithiasis cannot be excluded though the absence of cholelithiasis decreases the likelihood. Consider MRCP for better evaluation. MRCP 10/06/19: 1. Motion degraded exam. 2. Mild gallbladder distention with cholelithiasis. No definite evidence of acute cholecystitis. 3. No significant biliary ductal dilation or choledocholithiasis identified. 4. Moderate hiatal hernia.
[2019-10-06] MEDS ORDERED: INDOMETHACIN 50 MG SUPP PR ONE (15:54)
--- NOTE | 2019-10-06 18:42 | Anesthesiology Consultation ---
Date of Service October 06, 2019 Assessment & Plan (1) Encounter for pre-operative examination: Chart Review Chart Review: Acceptable Risk for Surgery and Patient NOT seen in Pre Admission Testing Consults Requested none ASA ASA2 Proposed Anesthesia Anesthesia Type: General Risk / Benefits Reviewed With: PT / POA / Parent / Guardian, Accepts Plan and Informed Consent Obtained History Surgery Operation Date: 10/07/19 07:30 Proposed Procedures p Endoscopic Retrograde Cholangiopancreatogram, - MD chandu Monge Upper Endoscopic Ultrasonography - Dustin Sandhu MD s Laparoscopic Cholecystectomy - Jarrett Goomdan, DO, FACS Height/Weight Height: 5 ft 7 in Weight: 69.5 kg Allergies Allergy/AdvReac Type Severity Reaction Status Date / Time No Known Allergies Allergy Unverified 10/05/19 22:13 Medications Home Medications Medication Instructions Recorded Confirmed Last Taken metoprolol succinate 25 mg 25 mg PO DAILY #90 tab 05/05/19 10/05/19 10/05/19 06:00 tablet,extended release 24 hr calcium carb 300 mg-D3 800 1 tab PO DAILY 08/13/19 10/05/19 Unknown unit-mag ox 25 mg-epic kaleidoscope analyst 0.5 mg-george-Zn tablet multivitamin 1 tab PO DAILY 08/13/19 10/05/19 Unknown amlodipine 2.5 mg tablet 2.5 mg PO DAILY 08/15/19 10/05/19 10/05/19 06:00 brimonidine 0.2 %-timolol 0.5 % 1 drp OPB BID 08/15/19 10/05/19 10/05/19 18:00 eye drops dorzolamide 2 % eye drops 1 drops OP BID ml 08/15/19 10/05/19 10/05/19 18:00 netarsudil 0.02 %-latanoprost 1 drops OPB QPM 08/15/19 10/05/19 10/05/19 18:00 0.005 % eye drops scopolamine base 1 mg over 3 days 1 patch TD Q72H PRN #4 ea 08/15/19 10/05/19 Unknown transdermal patch levothyroxine 112 mcg tablet 112 mcg PO DAILY #90 tab 09/11/19 10/05/19 10/05/19 06:00 triamterene 37.5 1 cap PO DAILY #90 cap 09/11/19 10/05/19 10/05/19 06:00 mg-hydrochlorothiazide 25 mg capsule omeprazole 20 mg capsule,delayed 20 mg PO DAILY #90 cap 10/03/19 10/05/19 10/05/19 06:00 release Active Medications Generic Name Dose Route Start Last Admin Trade Name Nickq PRN Reason Stop Dose Admin Potassium Chloride/Sodium Chloride 20 meq in 1,000 mls @ 100 mls/hr 10/05/19 22:45 10/07/19 08:20 Normal Saline W/20 Meq Kcl IV 11/04/19 22:44 0 mls/hr .Q10H JOSEP Infusion Famotidine 20 mg/ Syringe 5 mls @ 2.5 mls/min 10/05/19 23:00 10/06/19 22:15 IV 11/04/19 22:59 2.5 mls/min Q12H JOSEP Administration Ceftriaxone Sodium 1,000 mg/ 60 mls @ 100 mls/hr 10/05/19 23:00 10/06/19 22:58 Dextrose IV 10/15/19 22:59 Infused Q24H JOSEP Infusion Protocol Levothyroxine Sodium 112 mcg 10/07/19 06:30 10/07/19 05:32 Synthroid PO 11/06/19 06:29 Not Given DAILYBB JOSEP NPO Date Last Intake of Fluids: 10/06/19 Time Last Intake of Fluids: 15:57 Date Last Intake of Solids: 10/05/19 Time Last Intake of Solids: 15:00 Past Medical History Medical History Acid reflux disease (Chronic) Hypertension (Chronic) Hypothyroidism (Chronic) Impaired fasting glucose (Chronic) Osteopenia (Chronic) Vertigo (Chronic) Exercise / Class Metabolic Activity II 4-5 Yardwork/Stairs/Walk up hill Negative for chest pain or shortness of breath. Past Family History Family History Father Diabetes Emphysema lung Other Breast cancer Hypertension Myocardial infarction Past Surgical History Surgical History H/O total thyroidectomy for multiple thyroid nodules History of salpingo-oophorectomy Past Anesthesia History No Hx of Anesthesia Complications History of PONV No Hx of Motion Sickness and History of PONV (Vomiting after thyroid) Social History Smoking Status: Never smoker Hx Alcohol Use: Yes Alcohol type: wine alcohol intake frequency: holidays/special occasions only Hx Substance Use: No Review of Systems Patient denies active symptoms of GERD. Physical Exam Vital Signs Last Vital Signs Temp 36.7 C 10/07/19 08:20 Pulse 85 10/07/19 08:20 Resp 17 10/07/19 08:20 BP 121/76 10/07/19 08:20 Pulse Ox 92 10/07/19 08:20 Constitutional not obese ENMT Mouth: + small oral opening; no TMJ abnormality Thyromental Distance: < 3.5 Finger Breadths Mallampati Class: II Neck normal visual inspection; neck extension not limited Respiratory normal respiratory effort Auscultation: lungs clear to auscultation bilaterally Cardiovascular Rate/Rhythm: regular rate and regular rhythm Heart Sounds: no murmur Neurologic moves all extremities Psychiatric Orientation: alert and oriented x 3 Testing Laboratory Results 10/07/19 07:29 Electrocardiogram Date: 10/05/19 Findings: + NSR @ (81 with 1st degree AV block) and + no change from (03/29/2017) Possible left atrial enlargement
[2019-10-06] MEDS: LEVOTHYROXINE SODIUM 112 MCG TABLET PO SCH (22:15)
[2019-10-06] MEDS: cefTRIAXone SODIUM 1,000 MG in DEXTROSE 5% 50 ML IV SCH (22:15)
[2019-10-07] MEDS: LEVOTHYROXINE SODIUM 112 MCG TABLET PO SCH ×2 (05:32→16:01)
[2019-10-07] MEDS: NSS + 20MEQ KCL 20 MEQ/1,000 ML BAG IV SCH ×3 (05:57→19:58)
[2019-10-07] MEDS ORDERED: PROPOFOL IV EMULSION 10 MG/ML 20 ML VIAL IV ONE (06:54)
[2019-10-07] MEDS ORDERED: LIDOCAINE HCL 2% 2 ML VIAL/AMP(20MG/ML) INFIL ONE (06:54)
[2019-10-07] MEDS ORDERED: fentaNYL citrate 100 MCG/2 ML VIAL ONE (06:54)
[2019-10-07] MEDS ORDERED: DEXAMETHASONE SOD INJ 4 MG/ML VIAL ONE (06:54)
[2019-10-07] MEDS ORDERED: ONDANSETRON INJ 2 MG/ML 2 ML VIAL ONE (06:54)
[2019-10-07] MEDS ORDERED: ROCURONIUM BROMIDE 10 MG/ML 5 ML VIAL ONE (06:54)
[2019-10-07] MEDS ORDERED: MIDAZOLAM HCL 1 MG/ML 2ML VIAL ONE (06:55)
[2019-10-07] MEDS ORDERED: INDOMETHACIN 50 MG SUPP PR ONE (07:30)
[2019-10-07 08:09] LABS: Basophils # (auto) 0.05 K/uL (0-0.2); Basophils % (auto) 0.7 %; Eosinophils # (auto) 0.08 K/uL (0-0.5); Eosinophils % (auto) 1.2 %; Hematocrit (blood only) 37.4 % (37-47); Immature Granulocytes # (auto) 0.02 K/uL (0.00-0.02); Immature Granulocytes % (auto) 0.3 %; Lymphocytes # (auto) 1.12 K/uL (1.2-3.4); Lymphocytes % (auto) 16.1 %; Mean Corpuscular Hemoglobin 29.5 pg (25-34); Mean Corpuscular Hgb Conc 34.8 g/dL (32-36); Mean Corpuscular Volume 84.8 fL (80-100); Mean Platelet Volume 9.4 fL (7.4-10.4); Monocytes % (auto) 10.1 %; Neutrophils # (auto) 4.98 K/uL (1.4-6.5); Neutrophils % (auto) 71.6 %; Platelet Count 229 K/uL (130-400); RDW Coefficient of Variation 13.5 % (11.5-14.5); Red Blood Count 4.41 M/uL (4.2-5.4); White Blood Count 6.95 K/uL (4.8-10.8)
--- NOTE | 2019-10-07 08:44 | History & Physical Bridge Note ---
Date of Service October 07, 2019 History & Physical Bridge Note I have examined the patient, reviewed the History & Physical and in the interval since the performance of the History & Physical I have noted the following changes of clinical significance: no changes noted EGD/EUS/ERCP
--- NOTE | 2019-10-07 08:47 | History & Physical Bridge Note ---
Date of Service October 07, 2019 History & Physical Bridge Note I have examined the patient, reviewed the History & Physical and in the interval since the performance of the History & Physical I have noted the following changes of clinical significance: no changes noted pt feeling better today. answered any additional questions. to OR today for ERCP and lap michael.
[2019-10-07 08:48] LABS: Albumin Level 3.1 gm/dl (3.4-5.0); BUN Creatinine Ratio 11.1 (10-20); Bilirubin Direct 4.1 mg/dl (0-0.2); Bilirubin,Total 5.5 mg/dl (0.2-1); Calcium 8.7 mg/dl (8.5-10.1); Creatinine Clr Calc Pharmacy 80.9 ml/min; Est GFR (African American) 106.5; Est GFR (Non-African American) 91.9; Potassium 3.3 mmol/L (3.5-5.1); Total Protein 6.7 gm/dl (6.4-8.2)
[2019-10-07] MEDS ORDERED: PROMETHAZINE HCL 12.5 MG in SODIUM CHLORIDE 0.9% 50 ML IV PRN (08:58)
[2019-10-07] MEDS ORDERED: fentaNYL citrate 100 MCG/2 ML VIAL IV PRN (08:58)
[2019-10-07] MEDS ORDERED: HYDROmorphone INJ 2 MG/ML SYR/VIAL IV PRN (08:58)
[2019-10-07] MEDS ORDERED: ATROPINE SULFATE 0.1 MG/ML 10ML SYR IV PRN (08:58)
[2019-10-07] MEDS ORDERED: ePHEDrine sulfate 50 MG/ML AMP IV PRN (08:58)
[2019-10-07] MEDS ORDERED: ONDANSETRON INJ 2 MG/ML 2 ML VIAL IV PRN (08:58)
[2019-10-07] MEDS ORDERED: LEVOTHYROXINE SODIUM 112 MCG TABLET PO SCH (09:00)
--- NOTE | 2019-10-07 10:01 | Operative Report ---
Post Operative Report Pre & Post Diagnosis Operation Date: 10/07/19 07:30 Pre-Op Diagnosis: Cholelithiasis Post-Op Diagnosis: Cholelithiasis I identified the patient and participated in the time-out.: Yes Procedure Operation Date: 10/07/19 07:30 Actual Procedures p Endoscopic Retrograde Cholangiopancreatogram,(Not Applicable) - Dustin Sandhu MD s Upper Endoscopic Ultrasonography(Not Applicable) - Dustin Sandhu MD s Laparoscopic Cholecystectomy(Not Applicable) - Vince Santoro, DO Surgeon Dustin Sandhu MD Carbon Plant Grinder None Estimated Blood Loss 0 Findings See Below (CBD stone removed, sphincterotomy and CBD/PD stent placed) Specimens None Description of Procedure EUS/ERCP I attest to the content of the Intraoperative Record and any orders documented therein. Any exceptions are noted below.
[2019-10-07] MEDS ORDERED: BUPIVACAINE/EPINEPHRINE 0.25% 1:200,000 30 ML VIAL ONE (10:04)
--- NOTE | 2019-10-07 10:08 | GI REPORT ---
Patient Name: Radha Sky Procedure Date: 10/07/2019 7:38 AM Date of : 1960 Admit Type: Inpatient Age: 59 Gender: Female Attending MD: Dustin Sandhu MD Procedure: Upper GI endoscopy Providers: Dustin Sandhu MD Referring MD: Home Fajardo Md, Vince Santoro Indications: Epigastric abdominal pain Medicines: General Anesthesia Complications: No immediate complications. Estimated Blood Loss: Estimated blood loss: none. Procedure: Pre-Anesthesia Assessment: - Prior to the procedure, a History and Physical was performed, and patient medications, allergies and sensitivities were reviewed. The patient's tolerance of previous anesthesia was reviewed. - The risks and benefits of the procedure and the sedation options and risks were discussed with the patient. All questions were answered and informed consent was obtained. - Patient identification and proposed procedure were verified prior to the procedure by the physician and the nurse. The procedure was verified in the procedure room. - Pre-procedure physical examination revealed no contraindications to sedation. After obtaining informed consent, the endoscope was passed under direct vision. Throughout the procedure, the patient's blood pressure, pulse, and oxygen saturations were monitored continuously. The Endoscope was introduced through the mouth, and advanced to the second part of duodenum. The upper GI endoscopy was accomplished without difficulty. The patient tolerated the procedure well. Findings: A 2 cm hiatal hernia was present. LA Grade A (one or more mucosal breaks less than 5 mm, not extending between tops of 2 mucosal folds) esophagitis with no bleeding was found at the gastroesophageal junction. The entire examined stomach was normal. The duodenal bulb and second portion of the duodenum were normal. Impression: - 2 cm hiatal hernia. - LA Grade A reflux esophagitis. - Normal stomach. - Normal duodenal bulb and second portion of the duodenum. - No specimens collected. Recommendation: - Perform an upper endoscopic ultrasound (UEUS) today. - Follow an antireflux regimen. - Use Protonix (pantoprazole) 40 mg PO daily for 2 months. Dustin Sandhu MD 10/07/2019 10:07:44 AM This report has been signed electronically. Note Initiated On: 10/07/2019 7:38 AM Number of Addenda: 0 I attest to the content of the Intraoperative Record and orders documented therein, exceptions below {[id number]}
--- NOTE | 2019-10-07 10:18 | GI REPORT ---
Patient Name: Radha Sky Procedure Date: 10/07/2019 7:40 AM Date of : 1960 Admit Type: Inpatient Age: 59 Gender: Female Attending MD: Dustin Sandhu MD Procedure: Upper EUS Providers: Dustin Sandhu MD Referring MD: Home Fajardo Md, Vince Santoro Indications: Elevated liver enzymes, Suspected choledocholithiasis Medicines: General Anesthesia Complications: No immediate complications. Estimated Blood Loss: Estimated blood loss: none. Procedure: Pre-Anesthesia Assessment: - Prior to the procedure, a History and Physical was performed, and patient medications, allergies and sensitivities were reviewed. The patient's tolerance of previous anesthesia was reviewed. - The risks and benefits of the procedure and the sedation options and risks were discussed with the patient. All questions were answered and informed consent was obtained. - Patient identification and proposed procedure were verified prior to the procedure by the physician and the nurse. The procedure was verified in the procedure room. - Pre-procedure physical examination revealed no contraindications to sedation. After obtaining informed consent, the endoscope was passed under direct vision. Throughout the procedure, the patient's blood pressure, pulse, and oxygen saturations were monitored continuously. The scope was introduced through the mouth, and advanced to the second part of duodenum. The upper EUS was accomplished without difficulty. The patient tolerated the procedure well. Findings: ENDOSONOGRAPHIC FINDING: : There was no sign of significant endosonographic abnormality in the ampulla. No masses seen. There was no sign of significant endosonographic abnormality in the visualized portion of the liver. There was no sign of significant endosonographic abnormality in the entire pancreas. The pancreatic duct measured up to 2.4 mm in diameter in the head area and 1 mm in the body. Moderate hyperechoic material consistent with sludge was visualized endosonographically in the common bile duct. The CBD diameter measured 7 mm. There was no sign of significant endosonographic abnormality in the gallbladder. Sludge seen. There was no sign of significant endosonographic abnormality in the visualized portion of the left adrenal gland. There was no sign of significant endosonographic abnormality involving the celiac trunk. Impression: - Hyperechoic material consistent with sludge was visualized endosonographically in the common bile duct and gallbladder. - There was no sign of significant pathology in the ampulla. - There was no evidence of significant pathology in the visualized portion of the liver. - There was no sign of significant pathology in the entire pancreas. - Endosonographic images of the left adrenal gland were unremarkable. - The celiac trunk was endosonographically normal. Recommendation: - Perform an ERCP today. Dustin Sandhu MD 10/07/2019 10:18:07 AM This report has been signed electronically. Note Initiated On: 10/07/2019 7:40 AM Number of Addenda: 0 I attest to the content of the Intraoperative Record and orders documented therein, exceptions below {[id number]}
--- NOTE | 2019-10-07 10:19 | Fluoroscopy Report ---
[place] ERCP biliary ductal CLINICAL HISTORY: 59 years-old Female presenting with ERCP. TECHNIQUE: Fluoroscopy was provided for endoscopic retrograde cholangiopancreatography. 10 fluoroscop ic image(s) recorded. COMPARISON: 10/06/2019. FINDINGS: Procedure: An endoscope projects over the descending duodenum a catheter was inserted into the pancre atic duct and common bile duct. The common bile duct was opacified with contrast and noted to be mild ly dilated. The cystic duct opacified as well as the gallbladder lumen and intrahepatic bile ducts. A microcatheter was advanced into the left intrahepatic bile ducts. Subsequently plastic common bile d uct and pancreatic duct stents were placed. Peritoneal spillage: No evidence of peritoneal spillage of contrast. Extrahepatic bile ducts: Mild dilation of the common bile duct. Contrast does not significantly opaci fy the small bowel. Intrahepatic bile ducts: There is no intrahepatic bile duct dilatation. Fluoroscopy dosage (mGy): 15.41. Fluoroscopy time: 65.6 seconds. Number or time of high level fluoroscopy (HLF), digital spot, or digital subtraction images: 0. IMPRESSION: Placement of plastic common bile duct and pancreatic duct stents. ACT 112: Negative or not required by law. Electronically signed by: Dionisio Vo M.D. 10/07/2019 10:18 AM
--- NOTE | 2019-10-07 10:26 | GI REPORT ---
Patient Name: Radha Sky Procedure Date: 10/07/2019 7:41 AM Date of : 1960 Admit Type: Inpatient Age: 59 Gender: Female Attending MD: Dustin Sandhu MD Procedure: ERCP Providers: Dustin Sandhu MD Referring MD: Home Fajardo Md, Vince Santoro Indications: Biliary dilation on Ultrasound, For therapy of bile duct stone(s), Elevated liver enzymes Medicines: General Anesthesia Complications: No immediate complications. Estimated Blood Loss: Estimated blood loss: none. Procedure: Pre-Anesthesia Assessment: - Prior to the procedure, a History and Physical was performed, and patient medications, allergies and sensitivities were reviewed. The patient's tolerance of previous anesthesia was reviewed. - The risks and benefits of the procedure and the sedation options and risks were discussed with the patient. All questions were answered and informed consent was obtained. - Patient identification and proposed procedure were verified prior to the procedure by the physician and the nurse. The procedure was verified in the procedure room. - Pre-procedure physical examination revealed no contraindications to sedation. After obtaining informed consent, the scope was passed under direct vision. Throughout the procedure, the patient's blood pressure, pulse, and oxygen saturations were monitored continuously. The Scope was introduced through the mouth, and advanced to the duodenum and used to inject contrast into the bile duct. The ERCP was accomplished without difficulty. The patient tolerated the procedure well. Findings: The railway switchman film was normal. The esophagus was successfully intubated under direct vision. The scope was advanced to a normal major papilla in the descending duodenum without detailed examination of the pharynx, larynx and associated structures, and upper GI tract. The upper GI tract was grossly normal. The ventral pancreatic duct was inadvertently cannulated with the short-nosed traction sphincterotome and guidewire without any complications. The wire was kept in place for double wire cannulation technique. A 0.035 inch straight Acrobat wire was passed into the biliary tree. The Fusion OMNI sphincterotome was passed over the guidewire and the bile duct was then deeply cannulated. Contrast was injected. I personally interpreted the bile duct images. Ductal flow of contrast was adequate. Image quality was adequate. Contrast extended to the main bile duct. The main bile duct was mildly dilated. The largest diameter was 8 mm. Opacification of the cystic duct and gallbladder was seen. The biliary orifice was stenotic. This appeared benign. Biliary sphincterotomy was made with a monofilament traction (standard) sphincterotome using ERBE electrocautery. There was no post-sphincterotomy bleeding. The biliary tree was swept with an 11.5 mm balloon starting at the bifurcation. Sludge was swept from the duct. One small stone was removed. No stones remained. One 5 Fr by 5 cm plastic pancreatic stent with a single external pigtail and no internal flaps was placed into the ventral pancreatic duct. Clear fluid flowed through the stent. The stent was in good position. One 10 Fr by 7 cm plastic biliary stent with a single external flap and a single internal flap was placed into the common bile duct. Bile flowed through the stent. The stent was in good position. Indomethacin 100 mg was given via suppository to decrease the risk of post-ERCP pancreatitis (PEP). Impression: - Benign biliary papillary stenosis. - The entire main bile duct was mildly dilated. - Choledocholithiasis was found. Complete removal was accomplished by biliary sphincterotomy and balloon extraction. - One plastic pancreatic stent was placed into the ventral pancreatic duct to decrease the risk of PEP. - One plastic biliary stent was placed into the common bile duct. Recommendation: - [facility] for [facility] care. - Repeat ERCP in 4- 6 weeks to remove stent. - Proceed with cholecystectomy. Dustin Sandhu MD 10/07/2019 10:25:43 AM This report has been signed electronically. Note Initiated On: 10/07/2019 7:41 AM Number of Addenda: 0 I attest to the content of the Intraoperative Record and orders documented therein, exceptions below {[id number]}
--- NOTE | 2019-10-07 11:02 | Operative Report ---
PG Post Operative Report Pre & Post Diagnosis Operation Date: 10/07/19 07:30 Pre-Op Diagnosis: Cholelithiasis;elevated LFT's Post-Op Diagnosis: Cholelithiasis;elevated LFT's I identified the patient and participated in the time-out.: Yes Procedure Operation Date: 10/07/19 07:30 Actual Procedures p Endoscopic Retrograde Cholangiopancreatogram,(Not Applicable) - MD chandu Monge Upper Endoscopic Ultrasonography(Not Applicable) - MD chandu Monge Laparoscopic Cholecystectomy(Not Applicable) - Vince Santoro DO Surgeon Vince Santoro DO Farmworker Bulbs None Estimated Blood Loss 5 Findings Consistent with Post-Op Diagnosis Specimens gallbladder Description of Procedure Prior to my portion of the procedure the patient was already in the operating room and intubated status post ERCP. please see GIs operative report regarding that. Following the ERCP the patient was placed into a supine position and the abdomen sterilely prepped and draped in usual fashion. A periumbilical incision was made with an 11 blade scalpel and carried down through the soft tissue using electrocautery. The anterior rectus fascia was opened using electrocautery and 2 #0 Vicryl stay sutures were placed. The peritoneum was elevated with hemostats and incised under direct vision using Metzenbaum scissors. A finger sweep was performed and a 12 mm Pugh trocar was placed. The abdomen was insufflated to 18 mmHg. The laparoscope was inserted and the abdomen was examined in 360. No gross abnormalities were identified. A subxiphoid 5 mm port and 2 right upper quadrant 5 mm ports were placed under direct vision. The patient was placed in a reverse Trendelenburg position and slightly airplaned to the left. The gallbladder was grasped and elevated superiorly and laterally. A [place] dissector was used to take down adhesions around the neck of the gallbladder. The cystic duct was identified and skeletonized. It was clipped twice proximally and once distally and transected using a laparoscopic scissor. In similar fashion the cystic artery was identified and skeletonized clipped and divided. The gallbladder was removed from the gallbladder fossa with electrocautery. It was placed into an Endo Catch bag. Thorough irrigation was performed. At the end of the procedure there was adequate hemostasis and no evidence of any bile leaks. A final look around the abdomen showed no other abnormalities. The gallbladder and trochars were all removed and the abdomen was desufflated. The fascia of the camera port was closed using 0 Vicryl in a [id number] fashion. All the wounds were irrigated and closed using 4-0 Monocryl. Marcaine was injected around them for postoperative analgesia and skin glue used as a dressing. The patient was awaken extubated and transferred to recovery in stable condition. My physician's therapy assistant was present throughout the entire case... helped with prepping the patient. With exposure for trocar placement, as well as retracted the gallbladder throughout the case and also assisted with wound closure and dressing placement. I attest to the content of the Intraoperative Record and any orders documented therein. Any exceptions are noted below.
[2019-10-07] MEDS ORDERED: GLYCOPYRROLATE 0.2 MG/ML VIAL ONE (11:14)
[2019-10-07] MEDS ORDERED: NEOSTIGMINE METHYLSULFATE 5 MG/5 ML SYR ONE (11:14)
[2019-10-07] MEDS ORDERED: KETOROLAC 30 MG/ML VIAL ONE (11:14)
[2019-10-07] MEDS ORDERED: HYDROCODONE/ACETAMOPHEN 5/325MG TAB PO PRN ×2 (12:13)
[2019-10-07] MEDS ORDERED: MoRPHine SULFATE 4 MG/ML 1 ML CARP\\VIAL IV PRN (12:13)
[2019-10-07] MEDS ORDERED: MoRPHine SULFATE 2 MG/ML CARP IV PRN (12:13)
[2019-10-07] MEDS ORDERED: MoRPHine SULFATE 10 MG/ML CARP/VIAL IV PRN (12:13)
[2019-10-07] MEDS: FAMOTIDINE 20 MG in SYRINGE 3 ML IV SCH (12:23)
--- NOTE | 2019-10-07 12:50 | Anesthesiology Progress Note ---
Date of Service October 07, 2019 Anesthesia Post Procedure Vital Signs Vital Signs: Temp Pulse Pulse Resp BP Pulse Ox 10/07/19 12:35 36.5 C 81 14 144/80 H 93 10/07/19 12:10 36.4 C L 86 14 126/79 92 10/07/19 12:00 36.7 C 73 20 139/79 97 10/07/19 11:44 36.7 C 70 21 135/81 94 10/07/19 11:35 78 16 135/78 99 10/07/19 11:25 69 16 135/79 99 10/07/19 11:15 72 20 137/81 98 10/07/19 11:08 36.5 C 82 14 129/73 98 10/07/19 08:20 36.7 C 85 17 121/76 92 10/07/19 06:01 36.9 C 90 16 127/83 94 10/06/19 23:29 36.8 C 87 16 120/70 93 10/06/19 14:52 36.9 C 91 H 16 114/73 90 Pain Intensity Upper Medial Abdomen: Pain Intensity: 2 Transfer of Care Handoff Completed per policy Notes Mental Status: alert / awake / arousable and participated in evaluation Patient Amnestic to Procedure: Yes Nausea / Vomiting: adequately controlled Pain: adequately controlled Airway Patency, RR, SpO2: stable & adequate BP & HR: stable & adequate Hydration State: stable & adequate Anesthetic Complications: no major complications apparent and Pt Satisfied with anesthetic care
[2019-10-07] MEDS ORDERED: POTASSIUM CHLORIDE 20 MEQ TABCR PO STA (15:22)
--- NOTE | 2019-10-07 15:33 | Hospitalist Progress Note ---
Date of Service October 07, 2019 Assessment & Plan (1) Abnormal gallbladder ultrasound: Abnormal gallbladder ultrasound/common bile duct dilatation/gallbladder wall thickening/transaminitis- NSS + KCl 20 mEq at 100 mils per hour. Zofran 4 mg IV every 6 hours as needed Famotidine 20 mg IV every 12 hours - change to po pantoprazole daily for 2 months Ceftriaxone 1 g IV daily MRCP without ductal dilation which had initially been seen on US at time of admission. Consulted surgery and GI - had ERCP showing mild erosive gastritis, lap michael 10/07 (2) Common bile duct dilatation: See above (3) Transaminitis: Trend - bili increasing before procedure today, transaminases were trending down repeat am (4) Hypertension: resume metoprolol succinate, triamterene/HCTZ and amlodipine (5) Hypothyroidism: Continue levothyroxine 112 mcg daily (6) Acid reflux disease: As above (7) Hypokalemia: Continue NSS + KCl 20 mEq at 100 mils per hour. Potassium 3.3 - replaced (8) DVT prophylaxis: SCDs Subjective Ms. Sky is s/p ERCP and cholecystectomy. She has no complaints, sitting up to chair with at bedside ROS Constitutional: no chills, aches, sweats or fever Respiratory: no sob,cough, sputum, or wheezing Cardiac: no chest pain, palpitations, edema, orthopnea or lightheadedness GI: no abdominal pain, nausea, vomiting, diarrhea or constipation : no dysuria or hesitancy Extremities: no joint pain or weakness Skin: no rash All other systems reviewed and negative Physical Exam Physical Exam: General: no distress Eyes: normal inspection, PERLL Respiratory: chest non tender, clear to auscultation, normal breath sounds, no respiratory distress, no accessory muscle use Cardiac: regular rate and rhythm, no rub or gallop, no murmur, no edema, no jvd GI/: active bowel sounds, no abd pain or tenderness, soft, non distended Extremities: normal range of motion, normal strength, non tender Neuro/Psych: alert and oriented x 3, normal mood and affect Skin: mild jaundice, dry Results & Data ([facility]) Vital Signs (Past 12 Hours) Vital Signs Temp Pulse Pulse Resp BP Pulse Ox 10/07/19 15:10 36.6 C 88 16 149/82 H 92 10/07/19 14:10 90 19 137/86 91 10/07/19 13:10 36.7 C 96 H 16 143/88 H 93 10/07/19 12:35 36.5 C 81 14 144/80 H 93 10/07/19 12:10 36.4 C L 86 14 126/79 92 10/07/19 12:00 36.7 C 73 20 139/79 97 10/07/19 11:44 36.7 C 70 21 135/81 94 10/07/19 11:35 78 16 135/78 99 10/07/19 11:25 69 16 135/79 99 10/07/19 11:15 72 20 137/81 98 10/07/19 11:08 36.5 C 82 14 129/73 98 10/07/19 08:20 36.7 C 85 17 121/76 92 10/07/19 06:01 36.9 C 90 16 127/83 94 PG Care Time/CCT Total # of Minutes Spent Total Time Spent with Patient: Total time spent is greater than 50% in coordination of care (as documented) at patient's floor/unit and/or counseling patient: Coding Level of Care Code 67972 Subseq Hosp Care Lvl 2 Diagnoses Abnormal gallbladder ultrasound R93.2 Common bile duct dilatation K83.8 Transaminitis R74.0 Hypertension I10 Hypothyroidism E03.9 Acid reflux disease K21.9 Hypokalemia E87.6 DVT prophylaxis Z29.9
[2019-10-07] MEDS: PANTOprazole 40 MG TAB PO SCH (16:47)
--- NOTE | 2019-10-07 16:48 | Surgery Progress Note ---
Date of Service October 07, 2019 Assessment & Plan (1) S/P laparoscopic cholecystectomy: Radha is 6 hours s/p ERCP, Laparoscopic Cholecystectomy. She is doing well. Pain is controlled. She denies nausea. Diet has been advanced to regular. Labs ordered for AM. Possible discharge tomorrow, Wednesday. Subjective Radha is resting comfortably in bed with family at bedside. She is doing very well. She reports that her pain is well-controlled. She denies nausea. She is tolerating a regular diet. Physical Exam Gastrointestinal (Abdomen): On physical exam- abdomen is soft, tender at incision sites. Incision sites x4. All clean, dry, intact, and well- approximated. Dermabond in place. No signs of infection. Mild ecchymosis from local injections. Results & Data Vital Signs (Past 12 Hours) Vital Signs Temp Pulse Pulse Resp BP Pulse Ox 10/07/19 15:10 36.6 C 88 16 149/82 H 92 10/07/19 14:10 90 19 137/86 91 10/07/19 13:10 36.7 C 96 H 16 143/88 H 93 10/07/19 12:35 36.5 C 81 14 144/80 H 93 10/07/19 12:10 36.4 C L 86 14 126/79 92 10/07/19 12:00 36.7 C 73 20 139/79 97 10/07/19 11:44 36.7 C 70 21 135/81 94 10/07/19 11:35 78 16 135/78 99 10/07/19 11:25 69 16 135/79 99 10/07/19 11:15 72 20 137/81 98 10/07/19 11:08 36.5 C 82 14 129/73 98 10/07/19 08:20 36.7 C 85 17 121/76 92 10/07/19 06:01 36.9 C 90 16 127/83 94 PG Care Time/CCT Total # of Minutes Spent Total Time Spent with Patient: Total time spent is greater than 50% in coordination of care (as documented) at patient's floor/unit and/or counseling patient: Coding Level of Care Code 17847 Subseq Hosp Care Lvl 1 Diagnoses S/P laparoscopic cholecystectomy Z90.49
[2019-10-07] MEDS: DORZOLAMIDE HCL 2% OPH SOLN 10 ML BTL OP SCH (21:35)
[2019-10-07] MEDS: cefTRIAXone SODIUM 1,000 MG in DEXTROSE 5% 50 ML IV SCH (22:24)
[2019-10-08] MEDS: LEVOTHYROXINE SODIUM 112 MCG TABLET PO SCH (05:20)
[2019-10-08] MEDS: NSS + 20MEQ KCL 20 MEQ/1,000 ML BAG IV SCH (05:21)
[2019-10-08 05:25] LABS: Hematocrit (blood only) 37.1 % (37-47); Hemoglobin 12.7 g/dL (12.0-16.0); Immature Granulocytes # (auto) 0.01 K/uL (0.00-0.02); Immature Granulocytes % (auto) 0.1 %; Lymphocytes # (auto) 0.65 K/uL (1.2-3.4); Lymphocytes % (auto) 7.3 %; Mean Corpuscular Hemoglobin 29.5 pg (25-34); Mean Corpuscular Hgb Conc 34.2 g/dL (32-36); Mean Corpuscular Volume 86.1 fL (80-100); Mean Platelet Volume 9.7 fL (7.4-10.4); Monocytes # (auto) 0.85 K/uL (0.11-0.59); Monocytes % (auto) 9.6 %; Neutrophils # (auto) 7.34 K/uL (1.4-6.5); Platelet Count 214 K/uL (130-400); RDW Coefficient of Variation 13.4 % (11.5-14.5); RDW Standard Deviation 42.6 fL (36.4-46.3); Red Blood Count 4.31 M/uL (4.2-5.4); White Blood Count 8.85 K/uL (4.8-10.8)
[2019-10-08 05:58] LABS: Albumin Level 2.8 gm/dl (3.4-5.0); BUN Creatinine Ratio 16.7 (10-20); Creatinine Clr Calc Pharmacy 84.5 ml/min; Est GFR (African American) 109.4; Est GFR (Non-African American) 94.4
[2019-10-08 06:01] LABS: Albumin Globulin Ratio 0.8 (0.9-2); Bilirubin Direct 2.1 mg/dl (0-0.2); Bilirubin,Total 2.8 mg/dl (0.2-1); Globulin 3.6 gm/dl (2.5-4.0); Total Protein 6.4 gm/dl (6.4-8.2)
[2019-10-08] MEDS ORDERED: ACETAMINOPHEN 325 MG TAB PO PRN (07:48)
[2019-10-08] MEDS: DORZOLAMIDE HCL 2% OPH SOLN 10 ML BTL OP SCH (08:11)
[2019-10-08] MEDS: PANTOprazole 40 MG TAB PO SCH (08:12)
[2019-10-08] MEDS ORDERED: MULTIVITAMIN TAB PO SCH (09:00)
[2019-10-08] MEDS ORDERED: BRIMONIDINE TARTRATE/TIMOLOL OPB SCH (09:00)
[2019-10-08] MEDS ORDERED: TRIAMTERENE/HCTZ 37.5/25MG CAP PO SCH (09:00)
[2019-10-08] MEDS ORDERED: AMLODIPINE BESYLATE 5 MG TAB PO SCH (09:00)
[2019-10-08] MEDS ORDERED: METOPROLOL SUCC 25MG EXT REL TAB PO SCH (09:00)
--- NOTE | 2019-10-08 09:20 | Surgery Progress Note ---
Date of Service October 08, 2019 Assessment & Plan (1) S/P laparoscopic cholecystectomy: pod 1 doing well ok from my standpoint for d/c instructions given. Subjective feeling well. minimal pain. Physical Exam Physical Exam: alert. nad abd: soft. expected incisional tenderness. Results & Data Vital Signs (Past 12 Hours) Vital Signs Temp Pulse Resp BP Pulse Ox 10/08/19 07:39 36.5 C 83 19 143/88 H 96 10/08/19 03:00 36.7 C 69 16 117/73 95 10/07/19 23:36 36.7 C 70 16 117/70 92 PG Care Time/CCT Total # of Minutes Spent Total Time Spent with Patient: Total time spent is greater than 50% in coordination of care (as documented) at patient's floor/unit and/or counseling patient: Coding Level of Care Code None Diagnoses S/P laparoscopic cholecystectomy Z90.49
--- NOTE | 2019-10-08 11:01 | Discharge Summary ---
Date of Service October 08, 2019 Admission HPI Per Admitting Provider The patient is a 59-year-old female with a past medical history including hypertension, vertigo, osteopenia, hypothyroidism, GERD and impaired fasting glucose. She presents the emergency department with acute onset of epigastric and midsternal chest discomfort, accompanied by nausea and abdominal bloating. Principal Diagnosis cholelithiasis Discharge Exam Constitutional WD/WN, vitals as above Respiratory normal respiratory effort, lungs clear to auscultation Cardiovascular Rate/Rhythm: regular rate and regular rhythm Heart Sounds: + murmur (systolic, per patient this is a known murmur ) Gastrointestinal (Abdomen) Inspection/Auscultation: abdomen normal to inspection and normal bowel sounds; abdomen not distended Percussion/Palpation: abdomen soft; abdomen nontender Musculoskeletal no cyanosis or clubbing, extremities motor strength 5/5 Skin no rashes, warm and dry Neurologic moves all extremities and awake Psychiatric A+Ox3, euthymic affect Discharge Data Allergies Allergy/AdvReac Type Severity Reaction Status Date / Time No Known Allergies Allergy Unverified 10/05/19 22:13 Consultations 10/05/19 20:50 ED Decision to Admit Stat 10/05/19 22:45 Consult Case Management - Discharge Planning Routine 10/06/19 10:20 Consult General Surgery Routine 10/06/19 10:38 Consult Gastroenterology Routine Procedures Performed Operation Date: 10/07/19 07:30 Actual Procedures p Endoscopic Retrograde Cholangiopancreatogram,(Not Applicable) - Dustin Sandhu MD s Upper Endoscopic Ultrasonography(Not Applicable) - Dustin Sandhu MD s Laparoscopic Cholecystectomy(Not Applicable) - Vince Santoro, Ordered Studies 10/05/19 19:33 US gallbladder Stat 10/06/19 03:46 MR MRCP Routine 10/07/19 07:30 FL ERCP biliary ductal Routine 10/07/19 07:33 US upper EUS PACS images Routine Hospital Course (1) Abnormal gallbladder ultrasound: Abnormal gallbladder ultrasound/common bile duct dilatation/gallbladder wall thickening/transaminitis- Ceftriaxone 1 g IV daily while inpatient MRCP without ductal dilation which had initially been seen on US at time of admission. Consulted surgery and GI - had ERCP showing esophagitis, lap michael 2/8 Per GI pantoprazole daily for 2 months (2) Common bile duct dilatation: See above (3) Transaminitis: Trend - bili peaked at 5.5 and now trending down, transaminases and alk phos are trending down follow with pcp (4) Hypertension: Continue metoprolol succinate, triamterene/HCTZ and amlodipine (5) Hypothyroidism: Continue levothyroxine 112 mcg daily (6) Acid reflux disease: As above (7) Hypokalemia: Replaced and resolved (8) DVT prophylaxis: SCDs Total Time Total Time Spent Total Time Spent (In Minutes): greater than 30 minutes Discharge Plan Discharge Items Patient Disposition: Home - Self-Care Reason For Visit: ABNORMAL LFT'S Discharge Diagnosis: Gallstones, abnormal LFTs Activity: Per Instructions section Lifting: No more than 10 pounds Bathing Comment: may shower; no soaking in tubs Exercise/Sports: Wait until after follow-up appointment Non-emergency contact: Primary Care Provider and Surgeon Call non-emergency contact if: you have any medication questions, your pain is not controlled, your pain is worsening, your temperature is above 101.5, your wound has increased redness and your wound pain has increased Follow-up/Referrals: Nataliya Drake MD [Primary Care Provider] - Vince Santoro DO [Surgeon] - (Please call to schedule follow up in clinic within 2 weeks) Diet: Regular Addtl Attending Provider Instructions: (1) Abnormal gallbladder ultrasound: You had your gallbladder removed on 10/07 as well as an esophagogastroduodenoscopy (ERCP). The ERCP showed esophagitis (inflammation of the esophagus. - stay on pantoprazole 40 mg daily for 2 months and follow up with Dr. Sandhu - Follow up with surgery as above - Please see your primary care provider within about a week. Please dicuss with Dr. Drake if she would like you to have follow up lab work to recheck your liver function (2) Hypertension: Continue metoprolol succinate, triamterene/HCTZ and amlodipine (3) Hypothyroidism: Continue levothyroxine 112 mcg daily (4) Acid reflux disease: As above (5) Hypokalemia: Your potassium was low, likely due to poor intake while ill. We gave you potassium replacements and your levels normalized. You do not need to change anything with your diet or supplement going forward, just eat a healthy well rounded diet. Pending Studies at Discharge: No Stand-Alone Forms: Call Back Authorization, [facility], Smoking Cessation Medications and DC Order Prescriptions: New hydrocodone-acetaminophen [[place]] 5-325 mg tablet 1 - 2 tab PO Q4H PRN (Reason: pain, initial therapy, max 8 tabs daily) Qty: 12 RF: 0 pantoprazole 40 mg Tablet,Delayed Release (Dr/Ec) 40 mg PO QAM Qty: 30 RF: 2 Continued metoprolol succinate 25 mg tablet extended release 24 hr 25 mg PO DAILY Qty: 90 RF: 3 levothyroxine [Synthroid] 112 mcg tablet 112 mcg PO DAILY Qty: 90 RF: 3 triamterene-hydrochlorothiazid [Dyazide] 37.5-25 mg capsule 1 cap PO DAILY Qty: 90 RF: 3 Caltrate + D3 Plus Minerals 300 mg-800 unit -25 mg-0.5 mg tablet 1 tab PO DAILY RF: 0 multivitamin tablet 1 tab PO DAILY RF: 0 brimonidine-timolol 0.2-0.5 % drops 1 drp OPB BID RF: 0 amlodipine 2.5 mg tablet 2.5 mg PO DAILY RF: 0 dorzolamide 2 % drops 1 drops OP BID RF: 0 Rocklatan 0.02-0.005 % drops 1 drops OPB QPM RF: 0 scopolamine base 1 mg over 3 days patch 3 day 1 patch TD Q72H PRN (Reason: motion sickness) Qty: 4 RF: 3 Discontinued omeprazole 20 mg capsule,delayed release(DR/EC) 20 mg PO DAILY Qty: 90 RF: 3 Discharge Orders: Discharge Order (Routine); Ordered 10/08/19 Ordered By: Alannah Tatum Admission Data Admit Date/Time: 10/06/19 14:53 Attending Provider: Home Fajardo Admit Provider: Tomás Denny Primary Care Provider: Nataliya Drake Other Providers: oHme Fajardo ; Tomás Denyn ; Vince Santoro ; Endy Vernon Other Interventions: Discharge Summary Assessment (RN) Last Done: 10/08/19 11:50 DC Date/Time DO NOT enter until pt leaves facility: 10/08/19 12:23 Supervising Physician Co-Signing Physician Notes I supervised Alannah Tatum NP on this patient's care. I examined the patient today independently of her. I discussed the plan of care with her with the plan being as written in her note except for any following changes/exceptions: None. In good spirits today. No abdominal pain. Her headache has resolved with acetaminophen and caffeine (tea). Otherwise, she is ready to go. Coding Level of Care Code D/C Day Management >30 mins Diagnoses Abnormal gallbladder ultrasound R93.2 Common bile duct dilatation K83.8 Transaminitis R74.0 Hypertension I10 Hypothyroidism E03.9 Acid reflux disease K21.9 Hypokalemia E87.6 DVT prophylaxis Z29.9
== END 2019-10-08 12:23 | disposition home or self-care (01) | DRG 419 ==
LOC: ED 19:17 → 3W 19:17 → SUATTDRO 21:46 → 3W 22:27